=== PATIENT | female | born 1945 | race Caucasian/White ===

== ENCOUNTER 2019-07-28 08:49 | Outpatient (CLI) | payer MEDICARE, SELFPAY ==
--- NOTE | ~2019-07-28 | XR_ITS ---
XR thoracic spine 3V 07/28/2019 09:09 Indication: Back pain Procedure: 3 views of the thoracic spine Comparison: No prior studies for comparison. Findings: Vertebral body heights are maintained. There is levoscoliosis centered at the thoracolumbar junction. There is moderate-severe multilevel thoracic and upper lumbar spondylosis. No paraspinal s oft tissue abnormality. Surrounding osseous structures within normal limits. There is right basilar a telectasis/scarring. There are cholecystectomy clips. Impression: 1: Moderate-severe thoracolumbar spondylosis. Reviewed, dictated and finalized at location A. Impression: 1: Moderate-severe thoracolumbar spondylosis.
--- NOTE | ~2019-07-28 | XR_ITS ---
XR lumbar spine 2-3V 07/28/2019 09:09 Indication: Low back pain Procedure: 3 views lumbar spine Comparison: 02/22/2015 Findings: There is loss of disc height at all lumbar levels. There is also disc height loss at T11-T1 2 and T12-L1. There are prominent ventral osteophytes at multiple levels including T11-12, T12-L1 and L1-2. There is grade 1 degenerative spondylolisthesis at L5-S1. There is moderate lower lumbar facet hypertrophy. There is levoscoliosis centered at the thoracolumbar junction. There are cholecystectom y clips. Impression: 1: Progression of severe thoracolumbar spondylosis. Reviewed, dictated and finalized at location A. Impression: 1: Progression of severe thoracolumbar spondylosis.
== END 2019-07-28 08:50 | disposition home or self-care (01) ==
LOC: ANHIMG 08:57
PROVIDERS: PCP Family Medicine Adolescent Medicine; Visit Provider Family Medicine Adolescent Medicine
DX: M54.5 Low back pain (principal); M47.815 Spondylosis without myelopathy or radiculopathy, thoracolumbar region
CPT/HCPCS: 72072; 72100

== ENCOUNTER 2019-10-30 07:02 | Outpatient (NON) | payer MEDICARE, SELFPAY ==
[2019-10-30 18:21] LABS: SARS-CoV-2 RNA PCR Negative
== END 2019-10-30 07:03 ==
PROVIDERS: PCP Family Medicine Adolescent Medicine; Visit Provider Family Medicine Adolescent Medicine
DX: Z20.828 Contact with and (suspected) exposure to other viral communicable diseases (principal); R50.9 Fever, unspecified
CPT/HCPCS: 87635; C9803; U0003

== ENCOUNTER 2019-10-31 00:35 | Emergency (ER) | payer MEDICARE, SELFPAY ==
[2019-10-31] VITALS (7 sets, daily range): BP systolic 99–111; BP diastolic 61–78; PULSE 69–96; RESP 14–24; TEMP 37.6–39.4; O2SAT 94–99
--- NOTE | ~2019-10-31 | XR_ITS ---
EXAMINATION: XR chest 1V portable INDICATION: Fever TECHNIQUE: Portable AP chest at 0126 hours COMPARISON: 03/17/2018 FINDINGS: The lungs are free of acute opacities. There is no pleural effusion or pneumothorax. The ca rdiomediastinal silhouette is normal. A healed shaft fracture of the left humerus is noted. IMPRESSION: 1. No acute cardiopulmonary abnormality. Reviewed, dictated and finalized at location A.
[2019-10-31 01:31] LABS: Basophils Percent Auto 0.5 % (0.2-1.2); Eosinophils Absolute Auto 0.3 K/mm3 (0-0.3); Eosinophils Percent Auto 5.9 % (0-4.4); Hematocrit 37.9 % (37.0-47.0); Hemoglobin 12.7 g/dL (12.0-15.0); Immature Granulocyte Absolute 0.03 K/mm3 (0.00-0.031); Immature Granulocyte Percent A 0.5 % (0-0.5); Lymphocytes Absolute Auto 0.88 K/mm3 (0.9-3.2); Lymphocytes Percent Auto 15.8 % (18.3-44.2); Mean Corpuscular HGB Conc 33.5 g/dl (32-36); Mean Corpuscular Hemoglobin 30.2 pg (26-34); Mean Platelet Volume 9.4 fl (7.4-10.4); Monocytes Absolute Auto 0.4 K/mm3 (0.1-0.6); Monocytes Percent Auto 6.8 % (2.6-8.5); Neutrophils Absolute Auto 3.9 K/mm3 (1.3-6.7); Neutrophils Percent Auto 70.5 % (45.5-73.1); Platelet Count Result 280 k/mm3 (150-375); Red Blood Count 4.21 M/mm3 (4.2-5.4); Red Cell Distribution Width 14.3 % (11.5-14.5); White Blood Count 5.6 K/mm3 (4.5-10.0)
[2019-10-31 01:37] LABS: INR 1.1; Prothrombin Time 13.4 Seconds (11.1-14.7)
[2019-10-31 01:38] LABS: Partial Thromboplastin Time 33.7 SECONDS (22.3-36.8)
[2019-10-31 01:41] LABS: Lactic Acid Reflex 0.6 mmol/L (0.7-2.1)
[2019-10-31 02:00] LABS: Add Urine Microscopic? YES; Appearance Urine Clear (Clear); Bilirubin Urine Negative (Negative); Blood Urine 2+ (Negative); Color Urine Yellow (Yellow); Glucose Urine UA Negative (Negative); Ketones Urine Negative (Negative); Leukocyte Esterase Ur Trace LEU/UL (Negative); Mucus Urine Rare /lpf; Nitrate Urine Negative (Negative); Protein Urine 1+ mg/dL (Negative); RBC Urine 21-50 /hpf (0-2); Specific Grav Ur 1.018 (1.001-1.035); Squamous Epithelial Cell Urine Many /hpf (Few); Urobilinogen Urine Negative mg/dL (<2.0)
[2019-10-31 02:10] LABS: Alanine Aminotransferase 120 U/L (4-35); Albumin Level 3.7 g/dL (3.5-5.1); Alkaline Phosphatase 200 U/L (38-126); Anion Gap 8 mmol/L (8-16); Aspartate Amino Transferase 227 U/L (14-36); Bilirubin,Total 0.5 mg/dL (0.2-1.3); Blood Urea Nitrogen 7 mg/dL (7-17); Calcium 8.1 mg/dL (8.4-10.2); Carbon Dioxide 21 mmol/L (22-30); Chloride 102 mmol/L (98-107); Estimated Glomerular Filt Rate > 60; Glucose 132 mg/dL (65-105); Potassium 3.5 mmol/L (3.4-5.0); Sodium 131 mmol/L (137-145)
[2019-10-31] MEDS: KETOROLAC 15 MG/ML VIAL (*BKC) IV PUSH (02:34)
[2019-10-31] MEDS: LACTATED RINGERS 1,000 ML 999 ML IV CONT (02:34)
--- NOTE | 2019-10-31 02:44 | ED.FEVER ---
HPI - Fever General Chief Complaint: Fever Stated Complaint: fever, n/v Time Seen by Provider: 10/31/19 01:39 Source: patient Mode of arrival: ambulatory Limitations: no limitations History of Present Illness HPI Narrative: This patient is a 74 year old female who presents for evaluation of fever. Patient reports she got her flu vaccination on Saturday. Following her vaccine, she reports she had not felt well. She reports she has felt like she has the flu. She is complaining of fatigue , headache, neck soreness with nausea. She also reports fever at home. MD elicited complaint: fever Related Data Home Medications Medication Instructions Recorded Confirmed aczvqmekuv-ojsgorm-oyjrslmu 50 1 cap PO Q6H PRN 10/26/19 mg-325 mg-40 mg capsule calcium carbonate 600 mg calcium 600 mg PO DAILY 10/26/19 (1,500 mg) tablet dexlansoprazole 60 mg 60 mg PO DAILY 10/26/19 capsule,biphase delayed release fexofenadine 60 mg tablet 60 mg PO Q12H 10/26/19 fluticasone 100 mcg-salmeterol 50 1 inhalation INHALATION Q12H 10/26/19 mcg/dose blistr powdr for inhalation gemfibrozil 600 mg tablet 600 mg PO BID 10/26/19 levothyroxine 100 mcg tablet 100 mcg PO DAILY 10/26/19 ek-nlq-H-fwxlqttr-bwswxz-ap934 mg PO 10/26/19 1,000 cs-uixtldpxc-zppsfo-herb 124 50 mg efferves tablet phenylephrine HCl 10 mg tablet 10 mg PO Q4-6H PRN 10/26/19 propranolol 60 mg capsule,24 60 mg PO DAILY 10/26/19 hr,extended release Allergies Allergy/AdvReac Type Severity Reaction Status Date / Time bacitracin Allergy Mild unknown Verified 10/31/19 00:52 esomeprazole Allergy Mild Unknown Verified 10/31/19 00:52 gramicidin D Allergy Mild Unknown Verified 10/31/19 00:52 neomycin Allergy Mild Unknown Verified 10/31/19 00:52 polymyxin B Allergy Mild Unknown Verified 10/31/19 00:52 Sulfa (Sulfonamide Allergy Mild Unknown Verified 10/31/19 00:52 Antibiotics) cefuroxime Allergy Unknown Unknown Verified 10/31/19 00:52 latex Allergy Unknown unknown Verified 10/31/19 00:52 moxifloxacin Allergy Unknown Unknown Verified 10/31/19 00:52 streptomycin Allergy Unknown Unknown Verified 10/31/19 00:52 ESOMEPRAZOLE MAG Allergy Unknown Unknown Uncoded 10/31/19 00:52 Review of Systems Review of Systems: All systems reviewed & are unremarkable except as noted in HPI and below Constitutional: Constitutional: Reports fever(s) ENT: Denies sore throat Cardiovascular: Cardiovascular: Denies chest pain Respiratory: Respiratory: Denies cough and Denies dyspnea Gastrointestinal: Gastrointestinal: Denies abdominal pain, Reports nausea and Denies vomiting Musculoskeletal: Musculoskeletal: Reports myalgias Neurologic: Reports headache(s) PMFSH Past Medical History Medical History (Updated 10/31/19 @ 04:20 by Kim Covington MD) Asthma Depression Diabetes IBS (irritable bowel syndrome) Irregular heart beat Lumbar radiculopathy, right Osteoporosis Social History Social History Smoking status: Never smoker Exam Narrative: Exam Narrative: GENERAL: Well-appearing, well-nourished, and in no acute distress. HEAD: Normocephalic, atraumatic EYES: PERRLA and EOMI, conjunctiva clear without discharge EARS: TM's clear bilaterally without erythema or dullness THROAT:Mucous membranes moist, Oropharynx normal without erythema, exudate, peritonsillar swelling or fluctuance NECK: Supple, without lymphadenopathy or mass RESPIRATORY: No respiratory distress, Airway patent, Respirations non-labored, Clear to auscultation without rales, rhonchi or wheeze HEART: Regular rate and rhythm. No murmur heard. Normal peripheral pulses. ABDOMEN: Soft, nontender, nondistended, normal active bowel sounds. No masses. No rebound or guarding, No organomegaly. EXTREMITIES: No edema, normal strength with full range of motion. SKIN: Warm, dry, normal color without rash NEURO: Alert and oriented x3. CN
[2019-10-31] MEDS: ONDANSETRON INJ 4 MG/2 ML VIAL IV PUSH (03:06)
[2019-10-31 03:13] LABS: Creatine Kinase 58 U/L (30-135)
[2019-10-31 10:13] LABS: Hepatitis B Surface Antigen Negative (Negative)
[2019-10-31 10:20] LABS: HAV RESULT Negative (Negative); Hepatitis B Core IgM Result Negative (Negative)
[2019-10-31 10:33] LABS: Hepatitis C Virus Antibody Negative (Negative)
== END 2019-10-31 04:45 | disposition home or self-care (01) ==
PROVIDERS: Emergency Provider General Practice; PCP Family Medicine Adolescent Medicine
DX: B34.9 Viral infection, unspecified (principal); R50.9 Fever, unspecified; R94.5 Abnormal results of liver function studies; J45.909 Unspecified asthma, uncomplicated; E11.9 Type 2 diabetes mellitus without complications; K58.9 Irritable bowel syndrome, unspecified; M81.0 Age-related osteoporosis without current pathological fracture
CPT/HCPCS: 36415; 71045; 80053; 80074; 81001; 82550; 83605; 85025; 85610; 85730; 86140; 87040; 96361; 96374; 96375; 99284; J1885; J2405; J7120

== ENCOUNTER 2019-12-05 12:19 | Emergency (ER) | payer MEDICARE, SELFPAY ==
[2019-12-05 12:28] VITALS: BP 114/73; PULSE 79; RESP 16; TEMP 36.8; O2SAT 98
--- NOTE | 2019-12-05 12:43 | ED.WOUNDLAC ---
HPI - Wound/Laceration General Chief Complaint: Wound/Laceration Stated Complaint: laceration left lower leg Time Seen by Provider: 12/05/19 12:43 Source: patient Mode of arrival: ambulatory Limitations: no limitations History of Present Illness HPI narrative: Karen Victoria is a 74 yo female with a PMH of hypothyroid, irregular heartbeat, high cholesterol, migraine, GERD, who comes to express care with skin tear of left proximal tibia area that occurred 8 days ago. Patient has been keeping it clean and dry and applying mupirocin ointment to the area. Continues to be somewhat puffy not red and warm but patient is concerned about infection because it has not healed yet, she has multiple other areas of small skin tears Related Data Home Medications Medication Instructions Recorded Confirmed ccmqcyonjq-miuewmb-sesqcvbq 50 1 cap PO Q6H PRN 10/26/19 12/05/19 mg-325 mg-40 mg capsule calcium carbonate 600 mg calcium 600 mg PO DAILY 10/26/19 12/05/19 (1,500 mg) tablet dexlansoprazole 60 mg 60 mg PO DAILY 10/26/19 12/05/19 capsule,biphase delayed release fexofenadine 60 mg tablet 60 mg PO Q12H 10/26/19 12/05/19 fluticasone 100 mcg-salmeterol 50 1 inhalation INHALATION Q12H 10/26/19 12/05/19 mcg/dose blistr powdr for inhalation gemfibrozil 600 mg tablet 600 mg PO BID 10/26/19 12/05/19 levothyroxine 100 mcg tablet 100 mcg PO DAILY 10/26/19 12/05/19 mv-min-vit C 1,000 mg PO 10/26/19 zf-cmsbfvyek-xktbdc-herb 124 50 mg efferves tablet phenylephrine HCl 10 mg tablet 10 mg PO Q4-6H PRN 10/26/19 12/05/19 propranolol 60 mg capsule,24 60 mg PO DAILY 10/26/19 12/05/19 hr,extended release oxycodone-acetaminophen [Percocet] 1 tablet PO Q6H PRN 12/05/19 12/05/19 venlafaxine 150 mg PO DAILY 12/05/19 12/05/19 Allergies Allergy/AdvReac Type Severity Reaction Status Date / Time bacitracin Allergy Mild unknown Verified 12/05/19 12:33 esomeprazole Allergy Mild Unknown Verified 12/05/19 12:33 gramicidin D Allergy Mild Unknown Verified 12/05/19 12:33 neomycin Allergy Mild Unknown Verified 12/05/19 12:33 polymyxin B Allergy Mild Unknown Verified 12/05/19 12:33 Sulfa (Sulfonamide Allergy Mild Unknown Verified 12/05/19 12:33 Antibiotics) cefuroxime Allergy Unknown Unknown Verified 12/05/19 12:33 latex Allergy Unknown unknown Verified 12/05/19 12:33 moxifloxacin Allergy Unknown Unknown Verified 12/05/19 12:33 streptomycin Allergy Unknown Unknown Verified 12/05/19 12:33 ketorolac [From Toradol] Allergy Hives Verified 12/05/19 12:33 ESOMEPRAZOLE MAG Allergy Unknown Unknown Uncoded 10/31/19 00:52 Review of Systems Review of Systems: Narrative: CONSTITUTIONAL: Denies fever, chills, sweats. EYES: Denies visual changes, redness, discharge. ENT: Denies rhinorrhea, congestion, sore throat, otalgia. CARDIOVASCULAR: Denies chest pain, palpitations, edema. RESPIRATORY: Denies dyspnea, wheezing, cough GASTROINTESTINAL: Denies abdominal pain, nausea, vomiting, diarrhea. GENITOURINARY: Denies dysuria, hematuria, abnormal discharge SKIN: Denies rash or itching. Skin tear to left anterior tibia area NEUROLOGIC: Denies numbness, or focal weakness. PSYCHIATRIC: Denies anxiety or depression. PMFSH Past Medical History Medical History Asthma Depression Diabetes IBS (irritable bowel syndrome) Irregular heart beat Lumbar radiculopathy, right Osteoporosis Family History Family History Other Asthma Diabetes mellitus Family history of arthritis Family history of chronic obstructive pulmonary disease Family history of congenital heart disease Family history of osteoarthritis Social History Social History (Updated 12/05/19 @ 12:53 by Morelia Keyes CNP) Smoking status: Never smoker Alcohol intake: never Exam Narrative: Exam Narrative: GENERAL: This is a well-nourished, well-developed patient, in mild distre
== END 2019-12-05 13:04 | disposition home or self-care (01) ==
PROVIDERS: Emergency Provider Nurse Practitioner; PCP Family Medicine Adolescent Medicine
DX: S81.812A Laceration without foreign body, left lower leg, initial encounter (principal); X58.XXXA Exposure to other specified factors, initial encounter; E03.9 Hypothyroidism, unspecified; E78.00 Pure hypercholesterolemia, unspecified; K21.9 Gastro-esophageal reflux disease without esophagitis; J45.909 Unspecified asthma, uncomplicated; E11.9 Type 2 diabetes mellitus without complications; M81.0 Age-related osteoporosis without current pathological fracture; F32.9 Major depressive disorder, single episode, unspecified
CPT/HCPCS: 99213; G0463

== ENCOUNTER → 2020-08-31 15:53 | Outpatient (CLI) | payer MEDICARE, SELFPAY ==
--- NOTE | ~2020-08-31 | MM_ITS ---
EXAMINATION: MM screening [facility] BI w keyshawn HISTORY: Screening mammogram TECHNIQUE: Craniocaudal and mediolateral oblique 3-D tomosynthesis images were obtained and synthetic 2-D images were generated. CAD analysis was submitted and interpreted. COMPARISON: 06/25/2018, 04/25/2017, 03/01/2016 BREAST PARENCHYMAL COMPOSITION: There are scattered areas of fibroglandular density. FINDINGS: There is no evidence of suspicious mass, calcification, or architectural distortion to sugg est malignancy in either breast. There has been no suspicious interval change. IMPRESSION: 1. No mammographic evidence of malignancy. 2. Recommend routine screening mammography in one year. BI-RADS Category 1: Negative Reviewed, dictated and finalized at location A.
== END ==
PROVIDERS: Visit Provider Obstetrics & Gynecology
DX: Z12.31 Encounter for screening mammogram for malignant neoplasm of breast (principal)
CPT/HCPCS: 77063; 77067

== ENCOUNTER → 2020-10-25 11:03 | Outpatient (CLI) | payer MEDICARE, SELFPAY ==
--- NOTE | ~2020-10-25 | XR_ITS ---
EXAMINATION: XR hip LT min 2V INDICATION: Left hip pain TECHNIQUE: Two views of the left hip are obtained. COMPARISON: None available FINDINGS: Bone alignment is normal. There is no fracture. The soft tissues are unremarkable. Phleboli ths are noted in the pelvis. There is severe spondylosis at L5-S1. IMPRESSION: 1. No acute osseous abnormality. 2. Severe lumbar spondylosis. Reviewed, dictated and finalized at location A.
== END ==
PROVIDERS: PCP Family Medicine Adolescent Medicine; Visit Provider Family Medicine Adolescent Medicine
DX: M25.552 Pain in left hip (principal); M47.816 Spondylosis without myelopathy or radiculopathy, lumbar region
CPT/HCPCS: 73502

== ENCOUNTER 2020-11-02 07:14 | Outpatient (CLI) | payer MEDICARE, SELFPAY ==
--- NOTE | ~2020-11-02 | XR_ITS ---
EXAMINATION: XR barium swallow modified DATE: 11/02/2020 08:18 INDICATION: Dysphagia. TECHNIQUE: The patient was given barium-containing material of multiple consistencies to swallow by t he speech pathologist while I performed fluoroscopy. Fluoroscopy exposure time was 0.9 minutes. The n umber of fluoroscopy images saved to the PACS was 1. Dose-area product was 0.7 Gy-cm^2. FINDINGS: There was trace laryngeal penetration with thin liquids. No aspiration. IMPRESSION: 1. Trace laryngeal penetration with thin liquids. No aspiration. 2. Please refer to the speech therapy report for recommendations. Reviewed, dictated and finalized at location A.
--- NOTE | 2020-11-02 11:01 | STOPEVAL ---
MODIFIED BARIUM SWALLOW EVALUATION Thank you for referring Karen Victoria to [facility].? Admitting Provider: Attending Provider: Alfonzo Gauthier MD Referring Provider: JOON Outpatient Evaluation Start: 11/02/20 10:29 Freq: Status: Active Protocol: Document 11/02/20 08:15 BAS (Rec: 11/02/20 10:42 BAS [email or web address]) Therapy Assessment Status Assessment Status Assessment Status Evaluation Outpatient Past Medical History Past Medical History No Past Medical/Surgical History Patient/Family Denies Significant Past Medical/ Surgical History Evaluation Information Problem Diagnosis Dysphagia Onset 02/25/2019 Cause Unknown Subjective Information Patient reports that she has Query Text:As Reported By Patient/ episodes of pills getting Family stuck in her throat and she must wash them down with extra sips of water. Patient stated that she feels that her airway is restricted. She states when she is eating, she eats slowly and carefully, chewing a long time for ease of swallowing. She reports that her swallowing is sometimes better, sometimes worse. Patient reports that she also suffers from GERD. Diagnostic Tests X-Rays For This Problem No MRI For This Problem No Pain Assessment Timing of Pain Assessment Timing of Pain Assessment Assessment Self Report Self Report Pain Level 0 Pain Score Pain Score 0: Self Report Modified Barium Swallow Evaluation Recent Swallowing History Reports Dysphagia Yes Onset of Dysphagia Last year. History of Dysphagia No Other Factors Impacting Dysphagia None History of Pneumonia No Reported Difficult Consistencies Pills,Solids Intake Method Prior to Swallow Oral Evaluation Diet Prior to Swallow Evaluation Regular, Level 7 Liquid Consistency Prior to Swallow Thin (0) Evaluation Consistency Solid Consistency 5 mL Method of Presentation Spoon Oral Preparatory Symptoms Within Functional Limits Oral Phase Symptoms Within Functional Limits Pharyngeal Phase Symptoms Within Functional Limits Severity of Vallecular Residue None - 0% No Residue Severity of Pyriform Sinus Residue None - 0% No Residue 8 Point Laryngeal Penetration-Aspiration Material Does Not Enter Airway Scale Cervical/Esophageal Symptoms
== END 2020-11-02 07:15 | disposition home or self-care (01) ==
PROVIDERS: PCP Family Medicine Adolescent Medicine; Visit Provider Family Medicine Adolescent Medicine
DX: R13.10 Dysphagia, unspecified (principal)
CPT/HCPCS: 92611

== ENCOUNTER → 2021-01-27 02:01 | Outpatient (CLI) | payer MEDICARE, SELFPAY ==
[2021-01-27 17:54] LABS: SARS-CoV-2 RNA PCR Negative
== END ==
PROVIDERS: PCP Family Medicine Adolescent Medicine; Visit Provider Family Medicine Adolescent Medicine
DX: Z20.822 Contact with and (suspected) exposure to COVID-19 (principal)
CPT/HCPCS: C9803; U0003; U0005

== ENCOUNTER → 2021-12-26 12:05 | Outpatient (CLI) | payer MEDICARE, SELFPAY ==
--- NOTE | ~2021-12-26 | MM_ITS ---
EXAMINATION: MM screening [facility] BI w keyshawn HISTORY: Screening TECHNIQUE: Craniocaudal and mediolateral oblique 3-D tomosynthesis images were obtained and synthetic 2-D images were generated. CAD analysis was submitted and interpreted. COMPARISON: No prior mammogram is available for comparison at this institution. BREAST PARENCHYMAL COMPOSITION: There are scattered areas of fibroglandular density. FINDINGS: There are focal clustered calcifications adjacent to the nipple on the right cc view which are not demonstrated on MLO view. These are possibly skin calcifications. The left breast is stable w ithout evidence for malignancy. IMPRESSION: 1. New right breast calcifications, possibly benign skin calcifications. 2. Additional mammographic views are recommended. BI-RADS Category 0: Incomplete: Needs additional imaging evaluation. Reviewed, dictated and finalized at location A.
== END ==
PROVIDERS: PCP Family Medicine Adolescent Medicine; Visit Provider Obstetrics & Gynecology
DX: Z12.31 Encounter for screening mammogram for malignant neoplasm of breast (principal); R92.8 Other abnormal and inconclusive findings on diagnostic imaging of breast
CPT/HCPCS: 77063; 77067

== ENCOUNTER → 2022-01-04 13:31 | Outpatient (CLI) | payer MEDICARE, SELFPAY ==
--- NOTE | ~2022-01-04 | DEXA_ITS ---
Bone Density Report Name: AKIRA DAVALOS Age: 76 Sex: Female Ethnicity: White Date of : 1945 Indication: osteopenia; monitoring treatment; height loss; prior fracture; asthma or emphysema; hysterectomy; postmenopausal Referring Provider: ADA COLBY Study: Bone densitometry was performed. Exam Date: January 04, 2022 Accession number: [id number] Bone Density: Region BMD T-score Z-score Classification AP Spine (L2, L3, L4) 0.980 -0.9 1.8 Normal Femoral Neck (Left) 0.653 -1.8 0.5 Osteopenia Total Hip (Left) 0.809 -1.1 0.9 Osteopenia Femoral Neck (Right) 0.698 -1.4 0.9 Osteopenia Total Hip (Right) 0.882 -0.5 1.5 Normal Total Hip Mean 0.846 -0.8 1.2 Normal World Health Organization criteria for BMD impression classify patients as: Normal (T-score at or above -1.0), Osteopenia (T-score between -1.0 and -2.5), or Osteoporosis (T-score at or below -2.5). 10-year Fracture Risk: FRAX not reported because: Treated for osteoporosis Previous Exams: Region Exam Age BMD T-score BMD Change BMD Change Date g/cm2 vs Baseline vs Previous AP Spine(L2, L3, L4) 01/04/2022 76 0.980 -0.9 0.046* 0.052* 08/25/2010 65 0.928 -1.4 -0.007 -0.007 01/23/2008 62 0.935 -1.3 Total Hip(Left) 01/04/2022 76 0.809 -1.1 -0.146* -0.076* 09/21/2016 71 0.886 -0.5 -0.070* 0.017 06/18/2014 69 0.869 -0.6 -0.087* 0.021 08/25/2010 65 0.848 -0.8 -0.107* -0.107* 01/23/2008 62 0.955 0.1 Total Hip(Right) 01/04/2022 76 0.882 -0.5 -0.088* -0.019 09/21/2016 71 0.901 -0.3 -0.069* 0.030* 06/18/2014 69 0.871 -0.6 -0.099* 0.030* 08/25/2010 65 0.841 -0.8 -0.129* -0.129* 01/23/2008 62 0.970 0.2 *Denotes significance at 95% confidence level, LSC for AP Spine = 0.022 g/cm2, LSC for Total Hip = 0.027 g/cm2 Clinical Information Provided by Patient: Has had a low trauma fracture Is being treated for osteoporosis Has used the following medications: Prolia (i.e. denosumab), Vitamin D, Calcium Has the following medical conditions: Asthma or Emphysema, Hysterectomy Patient maximum height was 60 Menopause Age: 46 No regular weight bearing exercise Drinks caffeinated beverages Onset of menses at age 8 Number of children 2 Missed period for more than 6 months in a row
== END ==
PROVIDERS: PCP Family Medicine Adolescent Medicine; Visit Provider Family Medicine Adolescent Medicine
DX: M81.0 Age-related osteoporosis without current pathological fracture (principal); Z78.0 Asymptomatic menopausal state; M85.852 Other specified disorders of bone density and structure, left thigh; M85.851 Other specified disorders of bone density and structure, right thigh
CPT/HCPCS: 77080

== ENCOUNTER 2022-01-10 08:43 | Outpatient (CLI) | payer MEDICARE, SELFPAY ==
--- NOTE | ~2022-01-10 | MMUS_ITS ---
EXAMINATION: MM diagnostic mammo unilat RT, US breast RT limited HISTORY: Follow-up right breast calcifications TECHNIQUE: Additional 3-D tomosynthesis images of the right breast were performed and synthetic 2-D i mages were generated. CAD analysis was submitted and interpreted. High resolution Limited right breas t ultrasound was performed. COMPARISON: Comparison to multiple prior studies sequentially, with oldest reviewed study dated 04/2014. BREAST PARENCHYMAL COMPOSITION: Breast composed of scattered areas of fibroglandular density FINDINGS: MAMMOGRAPHIC FINDINGS: Breast composed of scattered areas of fibroglandular density. There are right breast calcifications w hich have a benign configuration. No suspicious cluster of calcifications are identified. No suspicio us masses or architectural distortion. ULTRASOUND: Limited right breast ultrasound: Normal heterogeneous echotexture without focal solid or cystic mass. IMPRESSION: 1. No evidence for malignancy in the right breast. 2. Routine yearly screening mammogram and regular clinical breast examination are recommended. BI-RADS Category 2: Benign finding(s). Reviewed, dictated and finalized at location A. 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 No evidence for malignancy in the right breast. 2. Routine yearly screening mammogram and regular clinical breast examination a re recommended. BI-RADS Category 2: Benign finding(s).
== END 2022-01-10 08:44 ==
PROVIDERS: PCP Family Medicine Adolescent Medicine; Visit Provider Obstetrics & Gynecology
DX: R92.1 Mammographic calcification found on diagnostic imaging of breast (principal)
CPT/HCPCS: 76642; 77065

== ENCOUNTER 2022-05-19 08:29 | Emergency (ER) | payer MEDICARE, SELFPAY ==
--- NOTE | 2022-05-19 08:34 | ED.SKABFB ---
HPI - Skin/Abscess/Foreign Bdy General Stated complaint: cut left hand Time Seen by Provider: 05/19/22 08:46 Source: patient and RN notes reviewed Mode of arrival: ambulatory Limitations: no limitations History of Present Illness HPI narrative: 77-year-old female presents concern for dog bite to the dorsal aspect of her left hand. Reports on her daughter's dog bit her. Reports it is bruised, tender with a skin tear that keeps opening. She reports she has been putting mupirocin ointment on it. She reports slight redness and tenderness. She reports she was started on Augmentin for a different wound, she is on day 3 of Augmentin. She denies purulent drainage from the wound. MD complaint: other (Dog bite) Related Data Home Medications Medication Instructions Recorded Confirmed calcium carbonate 600 mg calcium 600 mg PO DAILY 10/26/19 04/20/22 (1,500 mg) tablet (Calcium) ergocalciferol (vitamin D2) 400 600 unit PO BID 05/22/21 04/20/22 unit capsule zinc 50 mg tablet 50 mg PO DAILY 05/22/21 04/20/22 meclizine 25 mg tablet 25 mg PO TID 11/23/21 04/20/22 Allergies Allergy/AdvReac Type Severity Reaction Status Date / Time bacitracin Allergy Mild unknown Verified 05/19/22 08:37 esomeprazole Allergy Mild Unknown Verified 05/19/22 08:37 gramicidin D Allergy Mild Unknown Verified 05/19/22 08:37 neomycin Allergy Mild Unknown Verified 05/19/22 08:37 polymyxin B Allergy Mild Unknown Verified 05/19/22 08:37 Sulfa (Sulfonamide Allergy Mild Unknown Verified 05/19/22 08:37 Antibiotics) cefuroxime Allergy Unknown Unknown Verified 05/19/22 08:37 latex Allergy Unknown unknown Verified 05/19/22 08:37 moxifloxacin Allergy Unknown Unknown Verified 05/19/22 08:37 streptomycin Allergy Unknown Unknown Verified 05/19/22 08:37 ketorolac [From Toradol] Allergy Hives Verified 05/19/22 08:37 Review of Systems Review of Systems: CONSTITUTIONAL: Denies malaise, chills, sweats, or fever. SKIN: Reports wound on the dorsal aspect of left hand, reports tenderness, redness, continued oozing MUSCULOSKELETAL: Denies musculoskeletal pain, decreased sensation, strength, range of motion hand All systems reviewed & are unremarkable except as noted in HPI and below PMFSH Past Medical History Medical History Asthma Depression Diabetes IBS (irritable bowel syndrome) Irregular heart beat Lumbar radiculopathy, right Osteoporosis Surgical History Surgical History H/O hysterectomy with oophorectomy History of cholecystectomy 2003 History of shoulder surgery 2014, right, rotator cuff Family History Family History Other Asthma Diabetes mellitus Family history of arthritis Family history of chronic obstructive pulmonary disease Family history of congenital heart disease Family history of osteoarthritis Social History Social History Smoking status: Never smoker Second hand tobacco smoke exposure: No Alcohol intake: current Alcohol use details: rarely Substance use: never Substance use type: does not use Living arrangements: with family Occupation/Education: retired Gender identity (if verbalized by the patient): Female Sexual Orientation (if Verbalized by the Patient): Straight or Heterosexual Spiritual care concerns: No Agree to blood products: Yes Comments At time of signature, agree with nursing past medical, surgical, social and family history. There is no relevant family history pertinent to the presenting complaint Exam Narrative: GENERAL: Well-appearing, well-nourished, and in no acute distress. HEAD: Normocephalic, atraumatic. EYES: PERRLA, conjunctivae clear ENT: Mucous membranes moist. NECK: Supple. No lymphadenopathy CHEST: Clear to auscultation. No respiratory di
[2022-05-19 08:41] VITALS: BP 123/71; PULSE 69; RESP 16; TEMP 37.1; O2SAT 99
== END 2022-05-19 09:19 | disposition home or self-care (01) ==
PROVIDERS: Emergency Provider Nurse Practitioner; PCP Family Medicine Adolescent Medicine
DX: S61.412A Laceration without foreign body of left hand, initial encounter (principal); W54.0XXA Bitten by dog, initial encounter; E11.9 Type 2 diabetes mellitus without complications; M81.0 Age-related osteoporosis without current pathological fracture; J45.909 Unspecified asthma, uncomplicated
CPT/HCPCS: 99212; G0463

== ENCOUNTER 2022-06-02 08:26 | Emergency (ER) | payer MEDICARE, SELFPAY ==
--- NOTE | 2022-06-02 08:35 | ED.GENADULT ---
HPI - General Adult General Chief complaint: Extremity Injury, Upper Stated complaint: left hand pain Time Seen by Provider: 06/02/22 08:35 Source: patient, RN notes reviewed and old records reviewed Mode of arrival: ambulatory Limitations: no limitations History of Present Illness HPI narrative: 77-year-old female presents to the [facility] with bruising and swelling to the left hand. Was seen on May 19, 2 weeks ago for skin tear. Finished Augmentin for a dog scratch to the same hand. Dog scratch/skin tear are healed. Patient states that her son was walking past her yesterday and bumped her hand and the bruising occurred right away. Bruising to the entire dorsal aspect of hand. No tenderness. Onset (ago): day(s) (1) Related Data Home Medications Medication Instructions Recorded Confirmed calcium carbonate 600 mg calcium 600 mg PO DAILY 10/26/19 05/30/22 (1,500 mg) tablet (Calcium) ergocalciferol (vitamin D2) 400 600 unit PO BID 05/22/21 05/30/22 unit capsule zinc 50 mg tablet 50 mg PO DAILY 05/22/21 05/30/22 Allergies Allergy/AdvReac Type Severity Reaction Status Date / Time bacitracin Allergy Mild unknown Verified 06/02/22 08:36 esomeprazole Allergy Mild Unknown Verified 06/02/22 08:36 gramicidin D Allergy Mild Unknown Verified 06/02/22 08:36 neomycin Allergy Mild Unknown Verified 06/02/22 08:36 polymyxin B Allergy Mild Unknown Verified 06/02/22 08:36 Sulfa (Sulfonamide Allergy Mild Unknown Verified 06/02/22 08:36 Antibiotics) cefuroxime Allergy Unknown Unknown Verified 06/02/22 08:36 latex Allergy Unknown unknown Verified 06/02/22 08:36 moxifloxacin Allergy Unknown Unknown Verified 06/02/22 08:36 streptomycin Allergy Unknown Unknown Verified 06/02/22 08:36 ketorolac [From Toradol] Allergy Hives Verified 06/02/22 08:36 Review of Systems Review of Systems: All systems reviewed & are unremarkable except as noted in HPI and below Constitutional: Constitutional: Reports no additional constitutional complaints Eyes: Eyes: Reports no additional eye complaints ENT: Reports system reviewed and no additional complaints, except as documented Cardiovascular: Cardiovascular: Reports no additional cardiovascular complaints, Denies chest pain and Denies dyspnea Respiratory: Respiratory: Reports no additional respiratory complaints, Denies chest congestion, Denies cough and Denies dyspnea Gastrointestinal: Gastrointestinal: Reports no additional gastrointestinal complaints, Denies abdominal pain, Denies nausea and Denies vomiting Musculoskeletal: Musculoskeletal: Reports no additional musculoskeletal complaints Integumentary/Breasts: Skin/Breast: Reports as per HPI Neurologic: Reports system reviewed and no additional complaints, except as documented Psychiatric: Psychiatric: Reports no additional psychiatric complaints Allergic/Immunologic: Allergic/Immunologic: Reports no additional allergic/immunologic complaints [facility] Past Medical History Medical History Asthma Depression Diabetes IBS (irritable bowel syndrome) Irregular heart beat Lumbar radiculopathy, right Osteoporosis Surgical History Surgical History H/O hysterectomy with oophorectomy History of cholecystectomy 2003 History of shoulder surgery 2014, right, rotator cuff Family History Family History Other Asthma Diabetes mellitus Family history of arthritis Family history of chronic obstructive pulmonary disease Family history of congenital heart disease Family history of osteoarthritis Social History Social History Smoking status: Never smoker Second hand tobacco smoke exposure: No Alcohol intake: current Alcohol use details: rarely Substance use: never Substance use type: does not use Li
[2022-06-02 08:38] VITALS: BP 128/70; PULSE 74; RESP 16; TEMP 37.3; O2SAT 99
== END 2022-06-02 08:50 | disposition home or self-care (01) ==
PROVIDERS: Emergency Provider Nurse Practitioner; PCP Family Medicine Adolescent Medicine
DX: S60.222A Contusion of left hand, initial encounter (principal); X58.XXXA Exposure to other specified factors, initial encounter; J45.909 Unspecified asthma, uncomplicated; E11.9 Type 2 diabetes mellitus without complications; M81.0 Age-related osteoporosis without current pathological fracture
CPT/HCPCS: 99212; G0463

== ENCOUNTER 2022-06-15 01:40 | Emergency (ER) | payer MEDICARE, SELFPAY ==
--- NOTE | ~2022-06-15 | XR_ITS ---
XR chest 1V portable 06/15/2022 03:14 Indication: Vomiting, weakness and diarrhea Procedure: AP portable chest Comparison: Comparison to multiple prior studies sequentially, with oldest reviewed study dated 07/04. Findings: Heart size is normal. There are irregular nodular densities of the right lower thorax. No p leural effusion or pneumothorax. No edema. No acute osseous abnormality. Moderate size hiatal hernia. Impression: 1: Irregular nodular densities right lower thorax. Differential diagnosis includes infectious/inflamm atory process and malignancy. Reviewed, dictated and finalized at location A. Impression: 1: Irregular nodular densities right lower thorax. Differential diagnosis inclu robert infectious/inflammatory process and malignancy.
--- NOTE | ~2022-06-15 | CT_ITS ---
EXAMINATION: CT abdomen pelvis w con DATE: 06/15/2022 05:56 INDICATION: Nausea, vomiting and epigastric pain TECHNIQUE: Computed tomography (CT) of the abdomen and pelvis was performed with 100 cc Omnipaque 350 intravenous contrast. The dose-length product was 369.72 mGy-cm. Automated exposure control and iter ative reconstruction technique were employed. COMPARISON: CT dated 06/11/2015 FINDINGS: There are irregular nodular densities and interstitial infiltrates of the right middle lobe . Largest nodule measures 1.8 x 1.3 cm. Heart size normal. No significant pleural or pericardial effu mahsa. No significant vascular abnormality. Moderate size hiatal hernia. No lymphadenopathy. Nonobstru ctive bowel gas pattern. Normal appendix. Nonobstructive bowel gas pattern. The spleen, pancreas, adr enal glands and left kidney are unremarkable. There are right renal cysts. No free air or free fluid. Colonic diverticulosis without evidence for diverticulitis. Severe lower thoracic and lumbar spine. Chronic wedge-shaped deformities of T11 and T12. Status post hysterectomy. There is a urachal remnant of the bladder. Small fat-containing umbilical hernia. IMPRESSION: 1. Irregular nodular densities with adjacent interstitial infiltrates of the right middle lobe, large st nodule measuring up to 1.8 cm. Differential diagnosis includes sequela of previous infectious/infl ammatory process, primary bronchogenic carcinoma and metastatic disease. 2: Moderate size hiatal hernia. Reviewed, dictated and finalized at location A. IMPRESSION: 1. Irregular nodular densities with adjacent interstitial infiltrates of the ri ght middle lobe, largest nodule measuring up to 1.8 cm. Differential diagnosis includes sequela of previous infectious/inflammatory process, primary bronchoge luana carcinoma and metastatic disease. 2: Moderate size hiatal hernia.
[2022-06-15 01:42] VITALS: BP 137/77; PULSE 78; RESP 18; TEMP 36.3; O2SAT 98
--- NOTE | 2022-06-15 02:40 | ECG_ITS ---
Measurements Intervals [place] Rate: 74 P: 48 SC: 164 QRS: -12 QRSD: 89 T: -1 QT: 378 QTc: 420 Interpretive Statements SINUS RHYTHM LOW QRS VOLTAGE IN PRECORDIAL LEADS [QRS DEFLECTION < 1.0 mV IN CHEST LEADS] BORDERLINE ECG NO PREVIOUS ECG AVAILABLE FOR COMPARISON Electronically Signed On 06-15-2022 15:25:04 CDT by Reynaldo Samuel M.D.
--- NOTE | 2022-06-15 03:22 | ED.NAVMDI ---
HPI - Nausea/Vomiting/Diarrhea General Chief complaint: Nausea/Vomiting/Diarrhea Time Seen by Provider: 06/15/22 03:08 History of Present Illness HPI Narrative: Patient is a 77-year-old female presenting with vomiting and diarrhea. Patient states that for the last 4 hours she has had numerous episodes of vomiting as well as diarrhea. She complains of some epigastric pain as well. States that she had a similar episode several years ago. She denies fevers, chest pain, shortness of breath, cough, dysuria, hematuria, rashes, flank pain. Related Data Home Medications Medication Instructions Recorded Confirmed calcium carbonate 600 mg calcium 600 mg PO DAILY 10/26/19 06/21/22 (1,500 mg) tablet (Calcium) ergocalciferol (vitamin D2) 400 600 unit PO BID 05/22/21 06/21/22 unit capsule zinc 50 mg tablet 50 mg PO DAILY 05/22/21 06/21/22 Allergies Allergy/AdvReac Type Severity Reaction Status Date / Time bacitracin Allergy Mild unknown Verified 06/21/22 10:01 esomeprazole Allergy Mild Unknown Verified 06/21/22 10:01 gramicidin D Allergy Mild Unknown Verified 06/21/22 10:01 neomycin Allergy Mild Unknown Verified 06/21/22 10:01 polymyxin B Allergy Mild Unknown Verified 06/21/22 10:01 Sulfa (Sulfonamide Allergy Mild Unknown Verified 06/21/22 10:01 Antibiotics) cefuroxime Allergy Unknown Unknown Verified 06/21/22 10:01 latex Allergy Unknown unknown Verified 06/21/22 10:01 moxifloxacin Allergy Unknown Unknown Verified 06/21/22 10:01 streptomycin Allergy Unknown Unknown Verified 06/21/22 10:01 ketorolac [From Toradol] Allergy Hives Verified 06/21/22 10:01 macrobid AdvReac Intermediate Nausea Uncoded 06/21/22 10:01 Review of Systems Review of Systems: All systems reviewed & are unremarkable except as noted in HPI and below PMFSH Past Medical History Medical History (Updated 06/21/22 @ 11:24 by Claire Bassett APRN) Asthma Depression Diabetes Diarrhea IBS (irritable bowel syndrome) Irregular heart beat Lumbar radiculopathy, right Myalgia Osteoporosis Tendinitis of left rotator cuff Surgical History Surgical History H/O hysterectomy with oophorectomy History of cholecystectomy 2003 History of shoulder surgery 2014, right, rotator cuff Family History Family History Other Asthma Diabetes mellitus Family history of arthritis Family history of chronic obstructive pulmonary disease Family history of congenital heart disease Family history of osteoarthritis Social History Social History Smoking status: Never smoker Second hand tobacco smoke exposure: No Alcohol intake: current Alcohol use details: rarely Substance use: never Substance use type: does not use Living arrangements: with family Occupation/Education: retired Gender identity (if verbalized by the patient): Female Sexual Orientation (if Verbalized by the Patient): Straight or Heterosexual Spiritual care concerns: No Agree to blood products: Yes Exam Narrative: GENERAL: Well-appearing, well-nourished, and in no acute distress. HEAD: Normocephalic, atraumatic. EYES: PERRLA and EOMI. ENT: Nares clear, no rhinorrhea or epistaxis. Mucous membranes moist. NECK: Supple. CHEST: Clear to auscultation. No respiratory distress. HEART: Regular rate and rhythm. Normal peripheral pulses. ABDOMEN: Soft, mild epigastric tenderness, no guarding or rebound EXTREMITIES: Normal range of motion. No edema. SKIN: Warm, dry, no rash. NEURO: No focal deficits. Alert and oriented x3. PSYCH: Normal mood and affect. Course Vital Signs Vital signs: Vital Signs Temperature 97.3 F L 06/15/22 01:42 Pulse Rate 78 06/15/22 01:42 Respiratory Rate 18 06/15/22 01:42 Blood Pressure 137/77 06/15/22 01:42 Pulse Oximetry 98 06/15/22 01:42 Oxygen
--- NOTE | 2022-06-15 03:40 | PC.NURSE ---
During downtime pt was given via IV 1L of NS, 20 mg of pepcid, and 4 mg of Zofran at 0215
[2022-06-15 03:56] LABS: Alanine Aminotransferase 14 U/L (6-35); Albumin Level 4.6 g/dL (3.5-5.1); Alkaline Phosphatase 109 U/L (38-126); Anion Gap 9 mmol/L (8-16); Aspartate Amino Transferase 25 U/L (14-36); Bilirubin,Total 0.5 mg/dL (0.2-1.3); Blood Urea Nitrogen 20 mg/dL (7-17); Calcium 9.2 mg/dL (8.4-10.2); Carbon Dioxide 25 mmol/L (22-30); Chloride 105 mmol/L (98-107); Estimated Glomerular Filt Rate > 60; Glucose 147 mg/dL (65-110); Potassium 3.7 mmol/L (3.4-5.0); Sodium 139 mmol/L (137-145)
[2022-06-15 04:46] VITALS: BP 130/63; PULSE 85; RESP 22; O2SAT 97
[2022-06-15 06:02] VITALS: PULSE 85
[2022-06-15] MEDS: PROPRANOLOL HCL 20 MG TABLET 60 MG PO (06:02)
[2022-06-15 06:04] VITALS: BP 115/64; PULSE 88; RESP 18; O2SAT 97
[2022-06-15] MEDS: ONDANSETRON HCL ODT 4 MG TABLET PO (06:51)
[2022-06-15 07:29] VITALS: BP 115/60; PULSE 80; RESP 18; O2SAT 97
== END 2022-06-15 07:31 | disposition home or self-care (01) ==
PROVIDERS: Emergency Provider Emergency Medicine; PCP Family Medicine Adolescent Medicine
DX: R11.2 Nausea with vomiting, unspecified (principal); R19.7 Diarrhea, unspecified; R91.1 Solitary pulmonary nodule; J45.909 Unspecified asthma, uncomplicated; E11.9 Type 2 diabetes mellitus without complications; K58.9 Irritable bowel syndrome, unspecified; M81.0 Age-related osteoporosis without current pathological fracture; Z90.710 Acquired absence of both cervix and uterus; Z90.49 Acquired absence of other specified parts of digestive tract; R94.31 Abnormal electrocardiogram [ECG] [EKG]
CPT/HCPCS: 36415; 71045; 74177; 80053; 93005; 96365; 99284; A9270; J0131; Q9967

== ENCOUNTER 2022-07-01 08:19 | Emergency (ER) | payer MEDICARE, SELFPAY ==
--- NOTE | 2022-07-01 08:29 | ED.WOUNDLAC ---
HPI - Wound/Laceration General Chief Complaint: Skin/Abscess/Foreign Body Stated Complaint: Skin tear, swelling, and pain on right leg Time Seen by Provider: 07/01/22 08:58 Source: patient and RN notes reviewed Mode of arrival: ambulatory Limitations: no limitations History of Present Illness HPI narrative: 77-year-old female presents concern for skin tear on her right ankle. She reports approximately 2 weeks ago she was scratched by her daughter's dog and had a triangular shaped skin tear. She reports she was seen by her primary, they placed Steri-Strips on it. She reports since then the wound has become red and swollen, tender. Reports it is difficult to walk. She reports she was prescribed Keflex in 2 days ago, she reports her symptoms have not improved in 48 hours on the antibiotics. She denies purulent drainage. Related Data Home Medications Medication Instructions Recorded Confirmed calcium carbonate 600 mg calcium 600 mg PO DAILY 10/26/19 07/01/22 (1,500 mg) tablet (Calcium) ergocalciferol (vitamin D2) 400 600 unit PO BID 05/22/21 07/01/22 unit capsule zinc 50 mg tablet 50 mg PO DAILY 05/22/21 07/01/22 Allergies Allergy/AdvReac Type Severity Reaction Status Date / Time ketorolac [From Toradol] Allergy Intermediate Hives Verified 07/01/22 09:05 bacitracin Allergy Mild Rash Verified 07/01/22 09:05 cefuroxime Allergy Mild Rash Verified 07/01/22 09:05 esomeprazole Allergy Mild Unknown Verified 07/01/22 08:36 gramicidin D Allergy Mild Rash Verified 07/01/22 09:05 latex Allergy Mild Rash Verified 07/01/22 09:05 moxifloxacin Allergy Mild Rash Verified 07/01/22 09:05 neomycin Allergy Mild Rash Verified 07/01/22 09:05 polymyxin B Allergy Mild Rash Verified 07/01/22 09:05 streptomycin Allergy Mild Rash Verified 07/01/22 09:05 Sulfa (Sulfonamide Allergy Mild Rash Verified 07/01/22 09:05 Antibiotics) nitrofurantoin AdvReac Mild Nausea Verified 07/01/22 09:05 [From Macrobid] Review of Systems Review of Systems: CONSTITUTIONAL: Denies malaise, chills, sweats, or fever. SKIN: Reports infected skin tear on her right ankle MUSCULOSKELETAL: Denies muscle skeletal pain NEUROLOGIC: Denies numbness, weakness All systems reviewed & are unremarkable except as noted in HPI and below PMFSH Past Medical History Medical History (Updated 07/01/22 @ 09:07 by Kiki May NP) Asthma Depression Diabetes Diarrhea IBS (irritable bowel syndrome) Irregular heart beat Lumbar radiculopathy, right Myalgia Osteoporosis Tendinitis of left rotator cuff Surgical History Surgical History H/O hysterectomy with oophorectomy History of cholecystectomy 2003 History of shoulder surgery 2014, right, rotator cuff Family History Family History Other Asthma Diabetes mellitus Family history of arthritis Family history of chronic obstructive pulmonary disease Family history of congenital heart disease Family history of osteoarthritis Social History Social History Smoking status: Never smoker Second hand tobacco smoke exposure: No Alcohol intake: current Alcohol use details: rarely Substance use: never Substance use type: does not use Living arrangements: with family Occupation/Education: retired Gender identity (if verbalized by the patient): Female Sexual Orientation (if Verbalized by the Patient): Straight or Heterosexual Spiritual care concerns: No Agree to blood products: Yes Comments At time of signature, agree with nursing past medical, surgical, social and family history. There is no relevant family history pertinent to the presenting complaint Exam Narrative: GENERAL: Well-appearing, well-nourished, and in no acute distress. HEAD: Normocephalic, atraumatic. EYES: PERRLA, conjunctivae clear, and E
[2022-07-01 08:32] VITALS: BP 127/69; PULSE 62; RESP 16; TEMP 36.7; O2SAT 99
== END 2022-07-01 09:14 | disposition home or self-care (01) ==
PROVIDERS: Emergency Provider Nurse Practitioner; PCP Family Medicine Adolescent Medicine
DX: S91.011A Laceration without foreign body, right ankle, initial encounter (principal); L08.9 Local infection of the skin and subcutaneous tissue, unspecified; W54.8XXA Other contact with dog, initial encounter; J45.909 Unspecified asthma, uncomplicated; E11.9 Type 2 diabetes mellitus without complications; M81.0 Age-related osteoporosis without current pathological fracture
CPT/HCPCS: 99213; G0463

== ENCOUNTER 2022-08-21 17:57 | Emergency (ER) | payer MEDICARE, SELFPAY ==
--- NOTE | ~2022-08-21 | CT_ITS ---
EXAMINATION: CT abdomen pelvis w con DATE: 08/21/2022 22:12 INDICATION: abdominal pain, RLQ TECHNIQUE: Computed tomography (CT) of the abdomen and pelvis was performed with 100 mL Omnipaque-350 intravenous contrast. Automated exposure control and iterative reconstruction technique were employe d. The dose-length product was 365.84 mGy-cm. COMPARISON: 06/15/2022. FINDINGS: Lower thorax: Large hiatal hernia. Bibasilar scar. Decreasing size and prominence of the right middle lobe changes previously described, likely resolving infectious/inflammatory process. Liver: Normal. Biliary/Gallbladder: Gallbladder is absent. No bile duct dilation. Pancreas: No mass or duct dilation. Spleen: Normal. Adrenals:No mass. Kidneys: Simple right midpole cysts. Multiple bilateral hypodensities that are too small to character ize but also likely represent cysts. No obstructive calcification. No suspicious mass. No hydronephro sis. GI tract: No small or large bowel dilation. Normal appendix. Diverticulosis without diverticulitis. Mesentery/Peritoneum: No ascites, mass, or free air. Retroperitoneum: No mass. Pelvis: Well distended urinary bladder with mild surrounding inflammatory change. Absent uterus.. Soft Tissues: Soft tissues and body wall unremarkable. Bones: No acute osseous finding. IMPRESSION: Mild urinary bladder wall inflammatory change, may represent cystitis in the appropriate clinical con text. Reviewed, dictated and finalized at location K. IMPRESSION: Mild urinary bladder wall inflammatory change, may represent cystitis in the ap propriate clinical context.
[2022-08-21 17:58] VITALS: BP 135/69; PULSE 77; RESP 16; TEMP 36.6; O2SAT 100
[2022-08-21 18:16] LABS: Basophils Percent Auto 0.6 % (0.2-1.2); Eosinophils Percent Auto 0.6 % (0-4.4); Hematocrit 34.6 % (37.0-47.0); Hemoglobin 10.3 g/dL (12.0-15.0); Immature Granulocyte Absolute 0.03 K/mm3 (0.00-0.031); Immature Granulocyte Percent A 0.5 % (0-0.5); Lymphocytes Percent Auto 32.2 % (18.3-44.2); Mean Corpuscular HGB Conc 29.8 g/dl (32-36); Mean Corpuscular Hemoglobin 25.5 pg (26-34); Mean Corpuscular Volume 85.6 fl (80-100); Mean Platelet Volume 8.5 fl (7.4-10.4); Monocytes Absolute Auto 0.5 K/mm3 (0.1-0.6); Monocytes Percent Auto 7.2 % (2.6-8.5); Neutrophils Absolute Auto 3.7 K/mm3 (1.3-6.7); Neutrophils Percent Auto 58.9 % (45.5-73.1); Platelet Count Result 546 k/mm3 (150-375); Red Blood Count 4.04 M/mm3 (4.2-5.4); Red Cell Distribution Width 17.1 % (11.5-14.5); White Blood Count 6.2 K/mm3 (4.5-10.0)
[2022-08-21 18:29] LABS: Alanine Aminotransferase 18 U/L (6-35); Albumin Level 4.6 g/dL (3.5-5.1); Alkaline Phosphatase 95 U/L (38-126); Anion Gap 8 mmol/L (8-16); Aspartate Amino Transferase 32 U/L (14-36); Bilirubin,Total 0.3 mg/dL (0.2-1.3); Blood Urea Nitrogen 9 mg/dL (7-17); Calcium 9.3 mg/dL (8.4-10.2); Carbon Dioxide 23 mmol/L (22-30); Chloride 105 mmol/L (98-107); Estimated Glomerular Filt Rate > 60; Glucose 168 mg/dL (65-110); Lipase 102 U/L (23-300); Potassium 4.3 mmol/L (3.4-5.0); Sodium 136 mmol/L (137-145)
[2022-08-21 18:41] LABS: Appearance Urine Clear (Clear); Bilirubin Urine Negative (Negative); Blood Urine Negative (Negative); Color Urine Yellow (Yellow); Glucose Urine UA Negative (Negative); Ketones Urine Negative (Negative); Leukocyte Esterase Ur Negative LEU/UL (Negative); Nitrate Urine Negative (Negative); Protein Urine Negative (Negative); Specific Grav Ur 1.006 (1.001-1.035); Urobilinogen Urine 0.2 mg/dL (<2.0); pH Urine 6.5 (5.0-9.0)
[2022-08-21 18:43] LABS: Platelet Estimate Increased (Adequate)
[2022-08-21 18:44] LABS: Anisocytosis 1+ (NORMAL); Hypochromasia 1+ (NORMAL); Poikilocytosis 1+ (NORMAL)
[2022-08-21 18:45] LABS: Schistocytes None Seen (NORMAL)
[2022-08-21 18:52] LABS: Add Urine Microscopic? NO
[2022-08-21 20:51] VITALS: BP 145/69; PULSE 68; RESP 18; O2SAT 100
--- NOTE | 2022-08-21 21:32 | ED.ABDPAIN ---
HPI - Abdominal Pain General Chief Complaint: Abdominal Pain <Kaur Cason PA-C - Last Filed: 08/22/22 04:18> Stated Complaint: ABD PAIN,CONSTIPATION <Kaur Cason PA-C - Last Filed: 08/22/22 04:18> Time Seen by Provider: 08/21/22 21:18 <Kaur Cason PA-C - Last Filed: 08/22/22 04:18> History of Present Illness HPI narrative: 77 y/o with a history of type 2 diabetes, hyperlipidemia, hypothyroidism, GERD reports for evaluation for RLQ abdominal pain and constipation for approximately 1 week. Patient states she has IBS and struggles with constipation regularly. She was advised by her PCP Dr. Rebolledo to drink a bottle of magnesium citrate 1 week ago without improvement. She reports today due to persistence of pain and discomfort. She describes the pain as cramping. Her last bowel movement was 4-1/2 hours ago and small in caliber. She does decreased frequency of flatulance. She also is complaining of vaginal burning and frequent bacterial vaginosis. States she contacted her [employer] who prescribed her Flagyl which she plans to fill tomorrow. She is also currently taking cefdinir prescribed by her nephew who is an ENT for a sinus infection. She denies nausea, vomiting, chest pain or shortness of breath, fever, diarrhea, dysuria, hematuria, melena. She does report having hemorrhoids which is currently being treated by her PCP with topical steroids. She has been using steroids for 1 week with improvement in hemorrhoids. <Kaur Cason PA-C - Last Filed: 08/22/22 04:18> Related Data Home Medications: Home Medications Medication Instructions Recorded Confirmed calcium carbonate 600 mg calcium 600 mg PO DAILY 10/26/19 07/01/22 (1,500 mg) tablet (Calcium) ergocalciferol (vitamin D2) 400 600 unit PO BID 05/22/21 07/01/22 unit capsule zinc 50 mg tablet 50 mg PO DAILY 05/22/21 07/01/22 <Kaur Cason PA-C - Last Filed: 08/22/22 04:18> Allergies/Adverse Reactions: Allergies Allergy/AdvReac Type Severity Reaction Status Date / Time ketorolac [From Toradol] Allergy Intermediate Hives Verified 08/21/22 20:55 bacitracin Allergy Mild Rash Verified 08/21/22 20:55 cefuroxime Allergy Mild Rash Verified 08/21/22 20:55 esomeprazole Allergy Mild Unknown Verified 08/21/22 20:55 gramicidin D Allergy Mild Rash Verified 08/21/22 20:55 latex Allergy Mild Rash Verified 08/21/22 20:55 moxifloxacin Allergy Mild Rash Verified 08/21/22 20:55 neomycin Allergy Mild Rash Verified 08/21/22 20:55 polymyxin B Allergy Mild Rash Verified 08/21/22 20:55 streptomycin Allergy Mild Rash Verified 08/21/22 20:55 Sulfa (Sulfonamide Allergy Mild Rash Verified 07/10/22 08:45 Antibiotics) nitrofurantoin AdvReac Mild Nausea Verified 07/10/22 08:45 [From Macrobid] <Kaur Cason PA-C - Last Filed: 08/22/22 04:18> Review of Systems Review of Systems: CONSTITUTIONAL: Denies fever, chills EYES: Denies visual changes, redness, or discharge. ENT: Denies rhinorrhea, congestion, sore throat, or otalgia. CARDIOVASCULAR: Denies chest pain, palpitations, or edema. RESPIRATORY: Denies cough or dyspnea. GASTROINTESTINAL: See HPI GENITOURINARY: Denies dysuria or hematuria. SKIN: Denies rash or itching. MUSCULOSKELETAL: Denies back pain, joint pain, or myalgia. NEUROLOGIC: Denies headache, numbness, dizziness, or weakness. PSYCHIATRIC: Denies anxiety or depression. <Kaur Cason PA-C - Last Filed: 08/22/22 04:18> [facility] Past Medical History Medical History: Medical History Asthma Depression Diabetes Diarrhea IBS (irritable bowel syndrome) Irregular heart beat Lumbar radiculopathy, right Myalgia Osteoporosis Tendinitis of left rotator cuff <Kaur Cason PA-C - Last Filed: 08/22/22 04:18> Surgical History Surgical History: Surgical History H/O hysterec
[2022-08-21] MEDS: ACETAMINOPHEN 500 MG TABLET 1000 MG PO (21:45)
[2022-08-21] MEDS: SODIUM CHLORIDE 0.9% IV 1,000 ML 999 ML IV CONT (21:54)
[2022-08-21] MEDS: DICYCLOMINE HCL 10 MG CAPSULE 20 MG PO (22:34)
== END 2022-08-21 23:10 | disposition home or self-care (01) ==
PROVIDERS: Emergency Medicine; Emergency Provider Physician Assistant; PCP Family Medicine Adolescent Medicine
DX: K59.00 Constipation, unspecified (principal); R10.31 Right lower quadrant pain; E11.9 Type 2 diabetes mellitus without complications; E78.5 Hyperlipidemia, unspecified; E03.9 Hypothyroidism, unspecified
CPT/HCPCS: 36415; 74177; 80053; 81003; 83690; 85025; 96360; 99284; A9270; J7030; Q9967

== ENCOUNTER → 2022-11-23 07:31 | Outpatient (CLI) | payer MEDICARE, SELFPAY ==
--- NOTE | ~2022-11-23 | XR_ITS ---
EXAMINATION: XR chest 2V DATE: 11/23/2022 07:50 INDICATION: Cough. Recent COVID-19 infection. TECHNIQUE: Frontal and lateral views of the chest were obtained. COMPARISON: Chest single view 06/15/2022, CT abdomen and pelvis 08/21/2022 FINDINGS: There is mild scarring at the lung apices. There is mild atelectasis in the lower lung zone s. Calcified right lung nodules are consistent with old granulomatous disease. No pleural effusion or pneumothorax or the heart size is normal. There is a moderate-sized hiatal hernia. Surgical clips in the right upper quadrant are likely from cholecystectomy. IMPRESSION: 1. Mild scarring at the lung apices and mild atelectasis in the lower lung zones. 2. Moderate-sized hiatal hernia. Reviewed, dictated and finalized at location E. IMPRESSION: 1. Mild scarring at the lung apices and mild atelectasis in the lower lung zone s. 2. Moderate-sized hiatal hernia.
== END ==
PROVIDERS: PCP Family Medicine Adolescent Medicine; Visit Provider Family Medicine Adolescent Medicine
DX: R05.9 Cough, unspecified (principal); K44.9 Diaphragmatic hernia without obstruction or gangrene; J98.11 Atelectasis
CPT/HCPCS: 71046

== ENCOUNTER → 2022-12-13 07:36 | Outpatient (CLI) | payer MEDICARE, SELFPAY ==
--- NOTE | ~2022-12-13 | XR_ITS ---
Lumbosacral Spine: AP and lateral views Clinical History: Pain Findings: Levoscoliosis of the thoracolumbar spine is similar to prior exam. Mild chronic anterior we dging deformity of T11 and T12 are unchanged. No definite fracture the lumbar spine. Stable grade 1 a nterolisthesis of L5 over S1. There is severe degenerative disc narrowing at L1-L2 and L5-S1. There i s moderate to advanced facet arthropathy throughout the lumbar spine. The sacroiliac joints are vicente lly outlined. Impression: Overall, no significant change from prior exam. Stable grade 1 anterolisthesis of L5 over S1, with levoscoliosis of the thoracolumbar spine. Mild chronic anterior wedging deformities of T11 and T12. Moderate degenerative spondylosis of lumbar spine otherwise, as noted above. Reviewed, dictated and finalized at [facility]. Impression: Overall, no significant change from prior exam. Stable grade 1 anterolisthesis of L5 over S1, with levoscoliosis of the thoraco lumbar spine. Mild chronic anterior wedging deformities of T11 and T12. Moderate degenerative spondylosis of lumbar spine otherwise, as noted above.
== END ==
PROVIDERS: PCP Family Medicine Adolescent Medicine; Visit Provider Family Medicine Adolescent Medicine
DX: M81.0 Age-related osteoporosis without current pathological fracture (principal); M48.061 Spinal stenosis, lumbar region without neurogenic claudication; M54.50 Low back pain, unspecified; M43.06 Spondylolysis, lumbar region; M48.54XA Collapsed vertebra, not elsewhere classified, thoracic region, initial encounter for fracture
CPT/HCPCS: 72100

== ENCOUNTER 2023-01-03 14:42 | Outpatient (CLI) | payer MEDICARE, SELFPAY ==
--- NOTE | 2023-01-07 16:14 | WPDHOLTEREM ---
Holter/Event Monitor Holter/Event Monitor Date of procedure: 01/03/23 Holter/Event Procedure: 48 Hr Holter Monitor Indications: Irregular heart beat Conclusion: 1. 48 hour holter monitor on 01/03/23. 2. Underlying rhythm is sinus rhythm. HR range 56-103 bpm; average HR 68 bpm. 3. There are 168 premature supraventricular complexes, 19 supraventricular couplets and 6 supraventricular bigeminy. No supraventricular tachycardia. 4. There is 1 premature ventricular complex. No ventricular tachycardia. 5. No sinoatrial or atrioventricular blocks. No significant pauses greater than 2 seconds. 6. Patient reports symptoms of irregular beat, out of breath, fast heart beat which demonstrate sinus rhythm, HR range 61-78 bpm and 1 PAC.
== END 2023-01-03 14:43 | disposition home or self-care (01) ==
LOC: ANHCARD 14:44
PROVIDERS: PCP Family Medicine Adolescent Medicine; Visit Provider Family Medicine Adolescent Medicine
DX: I49.8 Other specified cardiac arrhythmias (principal)
CPT/HCPCS: 93225; 93226

== ENCOUNTER → 2023-01-18 10:38 | Outpatient (CLI) | payer MEDICARE, SELFPAY ==
--- NOTE | ~2023-01-18 | MR_ITS ---
EXAMINATION: MR lumbar spine wo con DATE: 01/18/2023 11:32 INDICATION: Bilateral sciatica, left greater than right with low back pain radiating to the buttocks and posterior upper legs and with left leg numbness TECHNIQUE: Magnetic resonance imaging (MRI) of the lumbar spine was performed without intravenous con trast. Sequences included sagittal T2-weighted FSE, sagittal T2-weighted FS FSE, sagittal T1-weighted FSE, and axial T2-weighted FSE. COMPARISON: Lumbar spine MR dated 10/02/[address] abdomen and pelvis dated 08/21/2022 FINDINGS: S-shaped thoracolumbar scoliosis with 22 degree levoscoliosis from T10 through L1 and with 17 degrees dextroscoliosis from L2 through L5. There is 6 mm right lateral listhesis L4 on L5. 5 mm anterolisth esis L5 on S1. Chronic mild right anterior wedging of T10-L1 and chronic mild posterior vertebral bod y height loss at L5. No acute fractures. No pars interarticularis defects. There is severe disc heigh t loss at T9-T10, L1-L2 and L5-S1 and with right-sided predominance at T11-T12 and T12-L1. Moderate r ight-sided predominant disc height loss at T10-T11, moderate left-sided predominant disc height loss at L3-L4 and L4-L5 and mild disc height loss at L2-L3. There are annular fissures at each of these le vels from T11-T12 through L5-S1 Degenerative fibrovascular endplate changes and remodeling at the end plates associated with the previously noted severe disc height loss. Marrow signal is otherwise unrem arkable. The conus medullaris terminates at L1-L2. There is normal signal in the caudal spinal cord. A couple T2 hyperintense cysts at the right kidney measuring up to 1.3 cm. Paravertebral soft tissues are otherwise unremarkable. The following disc levels are specifically discussed: T12-L1: Disc is bulging. There is mild left and moderate right facet joint osteoarthritis. There is m oderate right and mild left neural foraminal stenosis. There is mild central canal stenosis. L1-L2: Disc is bulging. There is mild to moderate bilateral facet joint osteoarthritis. There is mild to moderate right and moderate left neural foraminal stenosis. There is mild central canal stenosis. L2-L3: Disc is bulging. There is mild hypertrophy of the ligamentum flavum. There is severe bilatera l facet joint osteoarthritis. There is mild right and moderate left neural foraminal stenosis. There is mild central canal stenosis. L3-L4: Disc is bulging with new left paracentral annular fissure with disc material extending 1.3 cm cephalad to the level of the inferior endplate of L3. There is hypertrophy of the ligamentum flavum. There is severe right and moderate left facet joint osteoarthritis. There is mild to moderate right and moderate to severe left neural foraminal stenosis. There is mild to moderate central canal stenos is. L4-L5: Disc is bulging with central disc extrusion with disc material extending up to 5 mm caudal to the level of the superior endplate of L5. There is hypertrophy of the ligamentum flavum. There is sev ere bilateral facet joint osteoarthritis. There is severe left and moderate to severe right neural fo raminal stenosis. There is severe central canal stenosis. L5-S1: Disc is bulging with central disc extrusion with disc material extending up to 8 mm cephalad t o the level of the inferior endplate of L5. There is severe bilateral facet joint osteoarthritis. The re is moderate to severe bilateral neural foraminal stenosis. There is mild central canal stenosis. IMPRESSION: 1. No interval change in a mild to moderate S-shaped lumbar lower thoracic scoliosis with interval pr ogression of severe spondylosis. Reviewed, dictated and finalized at location A. EASER IMPRESSION: 1. No interval change in a mild to moderate S-shaped lumbar lower thoracic scol iosis with i
== END ==
PROVIDERS: PCP Family Medicine Adolescent Medicine; Visit Provider Family Medicine Adolescent Medicine
DX: M47.896 Other spondylosis, lumbar region (principal)
CPT/HCPCS: 72148

== ENCOUNTER → 2023-01-25 12:21 | Outpatient (CLI) | payer MEDICARE, SELFPAY ==
--- NOTE | ~2023-01-25 | MM_ITS ---
EXAMINATION: MM screening corbin BI w keyshawn HISTORY: Screening mammogram TECHNIQUE: Craniocaudal and mediolateral oblique 3-D tomosynthesis images were obtained and synthetic 2-D images were generated. CAD analysis was submitted and interpreted. COMPARISON: 01/10/2022 diagnostic right mammogram and limited right breast ultrasound 12/26/2021, 08/31/2020 bilateral screening mammogram examinations BREAST PARENCHYMAL COMPOSITION: There are scattered areas of fibroglandular density. FINDINGS: Stable postsurgical architectural distortion in the posterior mid outer right breast. Occas ional benign calcifications. There is no evidence of suspicious mass, calcification, or architectural distortion to suggest malignancy in either breast. There has been no suspicious interval change. IMPRESSION: 1. No mammographic evidence of malignancy. 2. Recommend routine screening mammography in one year. BI-RADS Category 2: Benign finding(s). Reviewed, dictated and finalized at location A. EL STAFF MEMBER
== END ==
PROVIDERS: PCP Obstetrics & Gynecology; Visit Provider Obstetrics & Gynecology
DX: Z12.31 Encounter for screening mammogram for malignant neoplasm of breast (principal)
CPT/HCPCS: 77063; 77067

== ENCOUNTER 2023-02-23 08:03 | Emergency (ER) | payer MEDICARE, SELFPAY ==
--- NOTE | 2023-02-23 08:17 | ED.WOUNDLAC ---
HPI - Wound/Laceration General Chief Complaint: Wound/Laceration Stated Complaint: left leg skin Tear Time Seen by Provider: 02/23/23 08:18 Source: patient History of Present Illness HPI narrative: 77-year-old female presents with skin tear to left knee. Patient reports that her and her have been ill with GI illness. States that she was nauseated in the middle of the night around midnight and was on her knees next to toilet. States she vomited 1 time. Was getting up from the floor and cut her knee on tile floor. Arrived with non adherent gauze to left knee. Bleeding controlled. Last tetanus 7 years ago. Ambulatory with steady gait. All systems reviewed and negative except as noted above. Related Data Home Medications Medication Instructions Recorded Confirmed calcium carbonate 600 mg calcium 600 mg PO DAILY 10/26/19 02/23/23 (1,500 mg) tablet (Calcium) ondansetron HCl 4 mg tablet 4 mg PO Q8H 12/12/22 02/23/23 cefuroxime axetil 500 mg tablet See Rx Instructions .Route .COMPLEX 02/23/23 02/23/23 methylprednisolone 4 mg tablets in See Rx Instructions .Route .COMPLEX 02/23/23 02/23/23 a dose pack Allergies Allergy/AdvReac Type Severity Reaction Status Date / Time ketorolac [From Toradol] Allergy Intermediate Hives Verified 02/23/23 08:12 bacitracin Allergy Mild Rash Verified 02/23/23 08:12 cefuroxime Allergy Mild Rash Verified 02/23/23 08:12 esomeprazole Allergy Mild Unknown Verified 02/23/23 08:12 gramicidin D Allergy Mild Rash Verified 02/23/23 08:12 latex Allergy Mild Rash Verified 02/23/23 08:12 moxifloxacin Allergy Mild Rash Verified 02/23/23 08:12 neomycin Allergy Mild Rash Verified 02/23/23 08:12 polymyxin B Allergy Mild Rash Verified 02/23/23 08:12 streptomycin Allergy Mild Rash Verified 02/23/23 08:12 Sulfa (Sulfonamide Allergy Mild Rash Verified 02/23/23 08:12 Antibiotics) nitrofurantoin AdvReac Mild Nausea Verified 02/23/23 08:12 [From Macrobid] Review of Systems Review of Systems: CONSTITUTIONAL: Denies fever, chills, or sweats. EYES: Denies visual changes, redness, or discharge. ENT: Denies rhinorrhea, congestion, sore throat, or otalgia. CARDIOVASCULAR: Denies chest pain, palpitations, or edema. RESPIRATORY: Denies cough or dyspnea. GASTROINTESTINAL: Denies abdominal pain, nausea, vomiting, or diarrhea. GENITOURINARY: Denies dysuria or hematuria. SKIN: Denies rash or itching. Reports skin tear to left knee. MUSCULOSKELETAL: Denies back pain, joint pain, or myalgia. NEUROLOGIC: Denies headache, numbness, or weakness. PSYCHIATRIC: Denies anxiety or depression. All other systems reviewed are negative, except as documented in HPI. [facility] Past Medical History Medical History Anxiety Asthma Depression Diabetes Diarrhea Hyperlipidemia Hypothyroidism, unspecified IBS (irritable bowel syndrome) Irregular heart beat Lumbar radiculopathy, right Myalgia Osteoporosis Screening mammogram, encounter for Tendinitis of left rotator cuff Surgical History Surgical History H/O hysterectomy with oophorectomy (~1993) H/O right breast biopsy (~1992) benign History of cholecystectomy 2003 History of shoulder surgery 2014, right, rotator cuff Family History Family History Other Asthma Diabetes mellitus Family history of arthritis Family history of chronic obstructive pulmonary disease Family history of congenital heart disease Family history of osteoarthritis Social History Social History (Updated 10/24/22 @ 10:08 by MARY Mcgovern) Smoking status: Never smoker Second hand tobacco smoke exposure: No Alcohol intake: current Alcohol use details: rarely Substance use: never Substance use type: does not use Lack of Transportation: No Lack of Food: Never True Current Housing: I
[2023-02-23 08:18] VITALS: BP 114/63; PULSE 70; RESP 16; TEMP 37.1; O2SAT 99
== END 2023-02-23 08:50 | disposition home or self-care (01) ==
PROVIDERS: Emergency Provider Nurse Practitioner Family; PCP Family Medicine Adolescent Medicine
DX: S81.812A Laceration without foreign body, left lower leg, initial encounter (principal); W26.8XXA Contact with other sharp object(s), not elsewhere classified, initial encounter; E78.5 Hyperlipidemia, unspecified; E03.9 Hypothyroidism, unspecified; E11.9 Type 2 diabetes mellitus without complications; J45.909 Unspecified asthma, uncomplicated
CPT/HCPCS: 99212; G0463

== ENCOUNTER → 2023-04-30 12:06 | Outpatient (CLI) | payer MEDICARE, SELFPAY ==
--- NOTE | ~2023-04-30 | XR_ITS ---
EXAM: XR hand LT 2V DATE: 04/30/2023 12:32 HISTORY: Left hand wrist pain. No known injury . COMPARISON: X-ray left wrist 04/02/2016. FINDINGS: Decreased mineralization. No fracture or dislocation. No lytic or blastic lesion. Moderate scattered arthritic changes, typical of osteoarthritis, present in the interphalangeal joints of the fingers and thumb, first through third MCP joints, the trapeziometacarpal joint, and the triscaphe j oint. No erosion or periosteal change. Soft tissues within normal limits. IMPRESSION: Osteopenia. 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 Reviewed, dictated and finalized at location K. E CHANGER IMPRESSION: Osteopenia. Moderate polyarticular osteoarthritis of the hand and w rist.
== END ==
PROVIDERS: PCP Family Medicine Adolescent Medicine; Visit Provider Family Medicine Adolescent Medicine
DX: M19.042 Primary osteoarthritis, left hand (principal); M19.032 Primary osteoarthritis, left wrist; M85.88 Other specified disorders of bone density and structure, other site
CPT/HCPCS: 73120

== ENCOUNTER 2023-08-18 03:20 | Emergency (ER) | payer MEDICARE, SELFPAY ==
[2023-08-18 03:20] VITALS: BP 134/80; PULSE 83; RESP 18; TEMP 36.4; O2SAT 95
[2023-08-18 03:26] VITALS: PULSE 85
--- NOTE | 2023-08-18 03:27 | ECG_ITS ---
Test Date: 2023-08-18 03:30:59 Measurements Intervals [place] Rate: 80 P: 214 RI: 110 QRS: -26 QRSD: 86 T: -4 QT: 359 QTc: 415 Interpretive Statements SINUS RHYTHM WITH SHORT RI INTERVAL LOW QRS VOLTAGE IN PRECORDIAL LEADS [QRS DEFLECTION < 1.0 mV IN CHEST LEADS] POOR R-WAVE PROGRESSION ABNORMAL ECG No previous ECG available for comparison Electronically Signed On 08-18-2023 08:48:15 CDT by Reynaldo Samuel M.D.
[2023-08-18] MEDS: SODIUM CHLORIDE 0.9% IV 1,000 ML 999 ML IV CONT (04:19)
[2023-08-18] MEDS: ONDANSETRON INJ 4 MG/2 ML VIAL IV PUSH (04:19)
[2023-08-18 04:26] LABS: Basophils Percent Auto 0.5 % (0.2-1.2); Eosinophils Absolute Auto 0.3 K/mm3 (0-0.3); Eosinophils Percent Auto 4.2 % (0-4.4); Hematocrit 38.9 % (37.0-47.0); Hemoglobin 12.4 g/dL (12.0-15.0); Immature Granulocyte Absolute 0.01 K/mm3 (0.00-0.031); Immature Granulocyte Percent A 0.2 % (0-0.5); Lymphocytes Absolute Auto 0.86 K/mm3 (0.9-3.2); Lymphocytes Percent Auto 13.9 % (18.3-44.2); Mean Corpuscular HGB Conc 31.9 g/dl (32-36); Mean Corpuscular Hemoglobin 28.6 pg (26-34); Mean Corpuscular Volume 89.6 fl (80-100); Mean Platelet Volume 8.9 fl (7.4-10.4); Monocytes Absolute Auto 0.5 K/mm3 (0.1-0.6); Monocytes Percent Auto 7.6 % (2.6-8.5); Neutrophils Absolute Auto 4.6 K/mm3 (1.3-6.7); Neutrophils Percent Auto 73.6 % (45.5-73.1); Platelet Count Result 423 k/mm3 (150-375); Red Blood Count 4.34 M/mm3 (4.2-5.4); Red Cell Distribution Width 16.6 % (11.5-14.5); White Blood Count 6.2 K/mm3 (4.5-10.0)
[2023-08-18 04:41] LABS: Lactic Acid Reflex 0.9 mmol/L (0.7-2.0)
[2023-08-18 04:52] LABS: Alanine Aminotransferase 13 U/L (6-35); Albumin Level 4.3 g/dL (3.5-5.1); Alkaline Phosphatase 123 U/L (38-126); Anion Gap 8 mmol/L (4-12); Aspartate Amino Transferase 29 U/L (14-36); Bilirubin,Total 0.4 mg/dL (0.2-1.3); Blood Urea Nitrogen 18 mg/dL (7-17); Calcium 9.6 mg/dL (8.4-10.2); Carbon Dioxide 25 mmol/L (22-30); Chloride 108 mmol/L (98-107); Estimated Glomerular Filt Rate > 60; Glucose 127 mg/dL (65-110); Potassium 3.8 mmol/L (3.4-5.0); Sodium 141 mmol/L (137-145)
[2023-08-18] MEDS: LORazepam INJ (*CRX) 2 MG/ML VIAL 0.5 MG IV PUSH (04:59)
[2023-08-18] MEDS: PROCHLORPERAZINE EDISYLATE 10 MG/2 ML VIAL IV PUSH (04:59)
[2023-08-18 05:39] VITALS: BP 154/73; PULSE 93; RESP 18; O2SAT 98
--- NOTE | 2023-08-18 06:02 | ED.GENADULT ---
HPI - General Adult General Chief complaint: Dizziness Stated complaint: dizzy, nausea Time Seen by Provider: 08/18/23 03:43 History of Present Illness HPI narrative: Patient 78-year-old female who presents emergency department with chief complaint of feeling anxious and nauseated and dizzy. The patient reports that she has had chronic pain issues and attempted to take THC gummies today the patient took a 5 mg dose at 5:00 p.m. and was not feeling FX and took another 5 mg dose the patient reports that she started to feel lightheaded nauseated and felt very strange Related Data Home Medications Medication Instructions Recorded Confirmed calcium carbonate (Calcium 600) 600 mg PO DAILY 10/26/19 08/02/23 ondansetron HCl 4 mg tablet 4 mg PO Q8H 12/12/22 08/02/23 ketoconazole 2 % topical cream 1 applic topical BID PRN Rash 06/10/23 08/02/23 Allergies Allergy/AdvReac Type Severity Reaction Status Date / Time ketorolac [From Toradol] Allergy Intermediate Hives Verified 08/18/23 03:28 bacitracin Allergy Mild Rash Verified 08/18/23 03:28 cefuroxime Allergy Mild Rash Verified 08/18/23 03:28 esomeprazole Allergy Mild Unknown Verified 08/18/23 03:28 gramicidin D Allergy Mild Rash Verified 08/18/23 03:28 latex Allergy Mild Rash Verified 08/18/23 03:28 moxifloxacin Allergy Mild Rash Verified 08/18/23 03:28 neomycin Allergy Mild Rash Verified 08/18/23 03:28 polymyxin B Allergy Mild Rash Verified 08/18/23 03:28 streptomycin Allergy Mild Rash Verified 08/18/23 03:28 Sulfa (Sulfonamide Allergy Mild Rash Verified 08/18/23 03:28 Antibiotics) nitrofurantoin AdvReac Mild Nausea Verified 08/18/23 03:28 [From Macrobid] Review of Systems Review of Systems: A 10 system review of systems was completed on the patient and is negative except for what is stated in the HPI. Nursing and ancillary documentation was reviewed. [facility] Past Medical History Medical History Anxiety Asthma Concussion Depression Diabetes Diarrhea Hyperlipidemia Hypothyroidism, unspecified IBS (irritable bowel syndrome) Irregular heart beat Myalgia Osteoporosis Screening mammogram, encounter for Tendinitis of left rotator cuff Surgical History Surgical History H/O hysterectomy with oophorectomy (~1993) H/O right breast biopsy (~1992) benign History of cholecystectomy 2003 History of shoulder surgery 2014, right, rotator cuff Family History Family History Other Asthma Diabetes mellitus Family history of arthritis Family history of chronic obstructive pulmonary disease Family history of congenital heart disease Family history of osteoarthritis Social History Social History Smoking status: Never smoker Second hand tobacco smoke exposure: No Alcohol intake: current Alcohol use details: rarely Substance use: never Substance use type: does not use Lack of Transportation: No Lack of Food: Never True Current Housing: I Have Housing Concerned About Future Housing: No Difficulty Paying Gas/Electric Bills: No Difficulty Paying for Meds: No Currently Unemployed: No Education: High School Diploma/GED Difficulty w/ Childcare or Family Care: No Living arrangements: with family Additional living arrangements comments: Occupation/Education: retired Gender identity (if verbalized by the patient): Female Sexual Orientation (if Verbalized by the Patient): Straight or Heterosexual Spiritual care concerns: No Agree to blood products: Yes Exam Narrative: GENERAL: Well-appearing, well-nourished, and in no acute distress. HEAD: Normocephalic, atraumatic. EYES: PERRLA and EOMI. ENT: Nares clear, no rhinorrhea or epistaxis. Mucous membranes moist. NECK
[2023-08-18 06:07] LABS: Appearance Urine Clear (Clear); Bacteria Urine None Seen /hpf; Bilirubin Urine Negative (Negative); Blood Urine Negative (Negative); Color Urine Yellow (Yellow); Glucose Urine UA Negative (Negative); Ketones Urine Negative (Negative); Leukocyte Esterase Ur Trace LEU/UL (Negative); Nitrate Urine Negative (Negative); Non Pathogenic Casts 0-2; Protein Urine Negative (Negative); RBC Urine 0-2 /hpf (0-2); Specific Grav Ur 1.012 (1.001-1.035); Squamous Epithelial Cell Urine Occasional /hpf (Few); Urobilinogen Urine 0.2 mg/dL (<2.0); WBC Urine 0-5 /hpf (0-3)
[2023-08-18 06:16] LABS: Add Urine Microscopic? YES
== END 2023-08-18 06:36 | disposition home or self-care (01) ==
PROVIDERS: Emergency Provider Emergency Medicine; PCP Family Medicine Adolescent Medicine
DX: R11.2 Nausea with vomiting, unspecified (principal); E78.5 Hyperlipidemia, unspecified; E11.9 Type 2 diabetes mellitus without complications; E03.9 Hypothyroidism, unspecified
CPT/HCPCS: 36415; 80053; 81001; 83605; 85025; 93005; 96361; 96374; 96375; 99284; J0780; J2060; J2405; J7030

== ENCOUNTER 2023-11-01 23:27 | Emergency (ER) | payer MEDICARE, SELFPAY ==
[2023-11-01 23:28] VITALS: BP 109/60; PULSE 95; RESP 16; TEMP 36.6; O2SAT 97
[2023-11-02 03:04] LABS: Basophils Percent Auto 0.3 % (0.2-1.2); Eosinophils Absolute Auto 0.2 K/mm3 (0-0.3); Eosinophils Percent Auto 1.9 % (0-4.4); Hematocrit 35.7 % (37.0-47.0); Hemoglobin 11.2 g/dL (12.0-15.0); Immature Granulocyte Absolute 0.05 K/mm3 (0.00-0.031); Immature Granulocyte Percent A 0.5 % (0-0.5); Lymphocytes Absolute Auto 1.93 K/mm3 (0.9-3.2); Lymphocytes Percent Auto 18.8 % (18.3-44.2); Mean Corpuscular HGB Conc 31.4 g/dl (32-36); Mean Corpuscular Hemoglobin 27.8 pg (26-34); Mean Corpuscular Volume 88.6 fl (80-100); Mean Platelet Volume 8.7 fl (7.4-10.4); Monocytes Absolute Auto 1.1 K/mm3 (0.1-0.6); Monocytes Percent Auto 10.9 % (2.6-8.5); Neutrophils Absolute Auto 6.9 K/mm3 (1.3-6.7); Neutrophils Percent Auto 67.6 % (45.5-73.1); Platelet Count Result 564 k/mm3 (150-375); Red Blood Count 4.03 M/mm3 (4.2-5.4); Red Cell Distribution Width 17.4 % (11.5-14.5); White Blood Count 10.2 K/mm3 (4.5-10.0)
[2023-11-02 03:14] LABS: Alanine Aminotransferase 12 U/L (6-35); Albumin Level 4.2 g/dL (3.5-5.1); Alkaline Phosphatase 78 U/L (38-126); Anion Gap 11 mmol/L (4-12); Aspartate Amino Transferase 25 U/L (14-36); Bilirubin,Total 0.5 mg/dL (0.2-1.3); Blood Urea Nitrogen 21 mg/dL (7-17); Calcium 8.6 mg/dL (8.4-10.2); Carbon Dioxide 23 mmol/L (22-30); Chloride 101 mmol/L (98-107); Estimated Glomerular Filt Rate > 60; Glucose 137 mg/dL (65-110); Lipase 68 U/L (23-300); Potassium 4.1 mmol/L (3.4-5.0); Sodium 135 mmol/L (137-145)
--- NOTE | 2023-11-02 04:10 | ED.NAVMDI ---
HPI - Nausea/Vomiting/Diarrhea General Chief complaint: Nausea/Vomiting/Diarrhea Stated complaint: n/v/d dizzy abd pain Time Seen by Provider: 11/02/23 02:44 History of Present Illness HPI Narrative: 78-year-old female presenting with nausea and vomiting. States that she has a long history of constipation. She is currently on daily oxycodone for chronic back pain. States that she was struggling with constipation so she took some laxatives earlier. States that then she was able to have numerous liquidy bowel movements. States that she did have diffuse abdominal cramping which has resolved following the diarrhea. States that she did have numerous episodes of vomiting earlier today as well. She started to feel lightheaded so her called EMS as she has had episodes like this in the past where she became so lightheaded that she was unable to stand up. Currently, the patient states that she feels much better. Denies current nausea or abdominal pain. States that she feels thirsty. No further complaints. Related Data Home Medications Medication Instructions Recorded Confirmed calcium carbonate (Calcium 600) 600 mg PO DAILY 10/26/19 10/08/23 ondansetron HCl 4 mg tablet 4 mg PO Q8H 12/12/22 10/08/23 ketoconazole 2 % topical cream 1 applic topical BID PRN Rash 06/10/23 10/08/23 Allergies Allergy/AdvReac Type Severity Reaction Status Date / Time ketorolac [From Toradol] Allergy Intermediate Hives Verified 10/08/23 10:33 bacitracin Allergy Mild Rash Verified 10/08/23 10:33 cefuroxime Allergy Mild Rash Verified 10/08/23 10:33 esomeprazole Allergy Mild Unknown Verified 10/08/23 10:33 gramicidin D Allergy Mild Rash Verified 10/08/23 10:33 latex Allergy Mild Rash Verified 10/08/23 10:33 moxifloxacin Allergy Mild Rash Verified 10/08/23 10:33 neomycin Allergy Mild Rash Verified 10/08/23 10:33 polymyxin B Allergy Mild Rash Verified 10/08/23 10:33 streptomycin Allergy Mild Rash Verified 10/08/23 10:33 Sulfa (Sulfonamide Allergy Mild Rash Verified 10/08/23 10:33 Antibiotics) nitrofurantoin AdvReac Mild Nausea Verified 10/08/23 10:33 [From Macrobid] Review of Systems Review of Systems: All systems reviewed & are unremarkable except as noted in HPI and below PMFSH Past Medical History Medical History Anxiety Asthma Concussion Depression Diabetes Diarrhea Hyperlipidemia Hypothyroidism, unspecified IBS (irritable bowel syndrome) Irregular heart beat Myalgia Osteoporosis Screening mammogram, encounter for Tendinitis of left rotator cuff Surgical History Surgical History H/O hysterectomy with oophorectomy (~1993) H/O right breast biopsy (~1992) benign History of cholecystectomy 2003 History of shoulder surgery 2014, right, rotator cuff Family History Family History Other Asthma Diabetes mellitus Family history of arthritis Family history of chronic obstructive pulmonary disease Family history of congenital heart disease Family history of osteoarthritis Social History Social History Smoking status: Never smoker Second hand tobacco smoke exposure: No Alcohol intake: current Alcohol use details: rarely Substance use: never Substance use type: does not use Lack of Transportation: No Lack of Food: Never True Current Housing: I Have Housing Concerned About Future Housing: No Difficulty Paying Gas/Electric Bills: No Difficulty Paying for Meds: No Currently Unemployed: No Education: High School Diploma/GED Difficulty w/ Childcare or Family Care: No Living arrangements: with family Additional living arrangements comments: Occupation/Education: retired Gender identity (if verbalized by the patient): Female Sexual Orientation (if
[2023-11-02] MEDS: oxyCODONE HCL (*CRX) 5 MG TAB IR 15 MG PO (04:21)
[2023-11-02] MEDS: SODIUM CHLORIDE 0.9% IV 1,000 ML 999 ML IV CONT ×2 (04:23→06:19)
[2023-11-02 04:43] LABS: Add Urine Microscopic? NO; Appearance Urine Clear (Clear); Bacteria Urine None Seen /hpf; Bilirubin Urine Negative (Negative); Blood Urine Non-Hemolyzed Trace (Negative); Color Urine Yellow (Yellow); Glucose Urine UA Negative (Negative); Ketones Urine Negative (Negative); Leukocyte Esterase Ur Negative LEU/UL (Negative); Need Manual Microscopic Reviewed; Nitrate Urine Negative (Negative); Non Pathogenic Casts 0-2; Protein Urine Negative (Negative); RBC Urine 0-2 /hpf (0-2); Specific Grav Ur 1.005 (1.001-1.035); Squamous Epithelial Cell Urine Occasional /hpf (Few); Urobilinogen Urine 0.2 mg/dL (<2.0); WBC Urine 0-5 /hpf (0-3); pH Urine 6.5 (5.0-9.0)
[2023-11-02 05:08] VITALS: BP 98/50; PULSE 75; RESP 19; O2SAT 99
[2023-11-02 06:55] VITALS: BP 102/56; PULSE 88; RESP 18; O2SAT 99
[2023-11-02 07:14] VITALS: BP 109/64; PULSE 79; RESP 18; O2SAT 98
== END 2023-11-02 07:31 | disposition home or self-care (01) ==
PROVIDERS: Emergency Provider Emergency Medicine; PCP Family Medicine Adolescent Medicine
DX: R42 Dizziness and giddiness (principal); R11.2 Nausea with vomiting, unspecified; M54.9 Dorsalgia, unspecified; G89.29 Other chronic pain; Z79.891 Long term (current) use of opiate analgesic; F41.8 Other specified anxiety disorders; J45.909 Unspecified asthma, uncomplicated; E11.9 Type 2 diabetes mellitus without complications; E78.5 Hyperlipidemia, unspecified; E03.9 Hypothyroidism, unspecified
CPT/HCPCS: 36415; 80053; 81003; 83690; 85025; 96360; 96361; 99283; A9270; J7030

== ENCOUNTER 2023-11-25 13:18 | Outpatient (CLI) | payer MEDICARE, SELFPAY ==
--- NOTE | ~2023-11-25 | XR_ITS ---
XR hip RT min 2V Ordering provider: Alfonzo Gauthier MD History: . M25.551 - Pain in right hip . Comparison: None. FINDINGS: BONES: No acute fracture or dislocation. HIP JOINT SPACES: Mild narrowing of the joint space which may indicate osteoarthritic changes. SACROILIAC JOINT SPACES/LUMBAR SPINE: The sacroiliac joint spaces are normal. Mild degenerative carty es of the visualized lower lumbar spine. PUBIC SYMPHYSIS: Normal. SOFT TISSUES: Normal. IMPRESSION: No acute osseous abnormality pelvis and right hip. Reviewed, dictated and finalized at location A.
== END 2023-11-25 13:19 | disposition home or self-care (01) ==
PROVIDERS: PCP Family Medicine Adolescent Medicine; Visit Provider Family Medicine Adolescent Medicine
DX: M25.551 Pain in right hip (principal)
CPT/HCPCS: 73502

== ENCOUNTER 2023-12-09 09:06 | Outpatient (CLI) | payer MEDICARE, SELFPAY ==
--- NOTE | ~2023-12-09 | XR_ITS ---
XR wrist LT min 3V Ordering provider: Alfonzo Gauthier MD History: . NO INJURY RADIAL SIDE WRIST PAIN FOR 2 WEEKS . Comparison: None. FINDINGS: BONES: No acute fracture or dislocation. No definite scaphoid fracture. JOINT SPACES: Osteoarthritic changes between the trapezium and scaphoid bones. SOFT TISSUES: Normal. IMPRESSION: No acute osseous abnormality left wrist. Scaphotrapezial osteoarthritic changes. Reviewed, dictated and finalized at location A.
== END 2023-12-09 09:07 | disposition home or self-care (01) ==
PROVIDERS: PCP Family Medicine Adolescent Medicine; Visit Provider Family Medicine Adolescent Medicine
DX: M19.032 Primary osteoarthritis, left wrist (principal)
CPT/HCPCS: 73110

== ENCOUNTER 2024-02-27 13:53 | Outpatient (CLI) | payer MEDICARE, SELFPAY ==
--- NOTE | ~2024-02-27 | MR_ITS ---
Procedure: MR lumbar spine wo con Ordering provider: Alfonzo Gauthier MD History: . low back pain, bilateral lumbar radiculopathy . Comparison: None. Technique: MRI thoracic spine without contrast. FINDINGS: SPINAL CORD: Normal. The cord ends at the level of L1. VERTEBRAL BODIES: Normal height and alignment. No compression fracture. Normal marrow signal. Increas ed kyphosis at the level of T11-T12. DISK SPACES: Endplate changes at the level of L4-L5 and L5-S1. Narrowing of the disc T8-T9, T9-T10, T10-T11, T11-T12, T12-L1. L1-L2, L3-L4, L4-L5 and L5-S1. STENOSIS: Disc protrusion at the level of T8-T9, T11-T12, T12-L1, L1-L2, L2-L3, L3-L4, L4-L5 and L5-S 1. T11-T12: A right posterolateral disc protrusion with annulus tear. Slight narrowing of the right fora men. No root compression. Bilateral facet joint disease. T12-L1: A right posterolateral disc protrusion with slight narrowing of the right foramen. Bilateral facet joint disease. L1-L2: Diffuse disc bulge with bilateral narrowing of the foramina. Left nerve root compression. L2-L3: Diffuse disc bulge with bilateral narrowing of the foramina. Bilateral root compression is see n. L3-L4: Diffuse disc bulge with bilateral narrowing of the foramina with nerve root compression more o n the left side. L4-L5: Severe spinal canal stenosis. Diffuse disc bulge with central protrusion. Inferior migration i s seen in the disc. Narrowing of the foramina is noted. Thickening of the ligamenta flava is noted. B ilateral facet joint disease more on the left side L5-S1: Central disc protrusion with diffuse disc bulge on the left. Narrowing of the left foramina is seen with root compression. Bilateral facet joint disease. PARASPINOUS SOFT TISSUES: Right renal cyst. Tiny left kidney cyst. IMPRESSION: No acute osseous abnormality. Multilevel degenerative disc disease with variable degrees of spinal canal stenosis, intervertebral f oraminal narrowing and with nerve root compression. Reviewed, dictated and finalized at location A. R PILOT IMPRESSION: No acute osseous abnormality. Multilevel degenerative disc disease with variable degrees of spinal canal sten osis, intervertebral foraminal narrowing and with nerve root compression.
== END 2024-02-27 13:54 | disposition home or self-care (01) ==
LOC: GOSHIMG 13:54
PROVIDERS: PCP Family Medicine Adolescent Medicine; Visit Provider Family Medicine Adolescent Medicine
DX: M51.34 Other intervertebral disc degeneration, thoracic region (principal); M51.369 Other intervertebral disc degeneration, lumbar region without mention of lumbar back pain or lower extremity pain; M51.379 Other intervertebral disc degeneration, lumbosacral region without mention of lumbar back pain or lower extremity pain; M48.061 Spinal stenosis, lumbar region without neurogenic claudication; M48.04 Spinal stenosis, thoracic region; M48.07 Spinal stenosis, lumbosacral region
CPT/HCPCS: 72148

== ENCOUNTER → 2024-05-21 08:50 | Outpatient (CLI) | payer MEDICARE, SELFPAY ==
--- NOTE | ~2024-05-21 | XR_ITS ---
XR chest 2V 05/21/2024 09:10 Indication: Cough Procedure: 2 view chest Comparison: 11/23/2022 Findings: Right lower lobe pneumonia. Large hiatal hernia. Heart size normal. No significant effusion or pneumothorax. There are cholecystectomy clips. Impression: 1: Right lower lobe pneumonia. Reviewed, dictated and finalized at location A. Impression: 1: Right lower lobe pneumonia.
== END ==
LOC: EXPCRAD 08:54
PROVIDERS: PCP Family Medicine Adolescent Medicine; Visit Provider Family Medicine Adolescent Medicine
DX: R05.9 Cough, unspecified (principal); J18.9 Pneumonia, unspecified organism
CPT/HCPCS: 71046

== ENCOUNTER 2024-05-24 12:27 | Emergency (ER) | payer MEDICARE, SELFPAY ==
--- NOTE | 2024-05-24 12:35 | ED.URI ---
HPI - URI/Sore Throat General Chief Complaint: Upper Respiratory Infection Stated Complaint: Sore Throat Time Seen by Provider: 05/24/24 12:35 Source: patient, RN notes reviewed and old records reviewed Mode of arrival: ambulatory Limitations: no limitations History of Present Illness HPI Narrative: 79-year-old female presents to the [facility] with complaints of sore throat and generalized not feeling well. Patient states that she had back surgery on May 07 and that is when the sore throat started. Patient along May 12 was prescribed Augmentin for her sore throat by her primary care provider. States that she started taking it twice a day and then was only taking it once a day because it was giving her side effects of diarrhea. Patient had contacted her primary once again, had a chest x-ray 3 days ago on May 21. X-ray showed a right lower lobe pneumonia. Patient was then prescribed clarithromycin. Patient reports she has been taking it since Saturday evening as prescribed. States that she is not feeling better still having a sore throat. Patient also reports that she has been using her nebulizer machine 3 times a day. Related Data Home Medications ?Medication ?Instructions ?Recorded ?Confirmed ?Last Taken ?Type calcium carbonate (Calcium 600) 600 mg PO DAILY 10/26/19 02/25/24 Unknown History Allergies Allergy/AdvReac Type Severity Reaction Status Date / Time ketorolac (From Toradol) Allergy Intermediate Hives Verified 05/24/24 12:37 bacitracin Allergy Mild Rash Verified 05/24/24 12:37 cefuroxime Allergy Mild Rash Verified 05/24/24 12:37 esomeprazole Allergy Mild Unknown Verified 05/24/24 12:37 gramicidin D Allergy Mild Rash Verified 05/24/24 12:37 latex Allergy Mild Rash Verified 05/24/24 12:37 moxifloxacin Allergy Mild Rash Verified 05/24/24 12:37 neomycin Allergy Mild Rash Verified 05/24/24 12:37 polymyxin B Allergy Mild Rash Verified 05/24/24 12:37 streptomycin Allergy Mild Rash Verified 05/24/24 12:37 Sulfa (Sulfonamide Allergy Mild Rash Verified 05/24/24 12:37 Antibiotics) nitrofurantoin (From AdvReac Mild Nausea Verified 05/24/24 12:37 Macrobid) Review of Systems Review of Systems: All systems reviewed & are unremarkable except as noted in HPI and below Constitutional: Constitutional: Reports no additional constitutional complaints ENT: Reports as per HPI Cardiovascular: Cardiovascular: Reports no additional cardiovascular complaints, Denies chest pain and Denies dyspnea Respiratory: Respiratory: Reports as per HPI, Denies chest congestion, Reports cough and Denies dyspnea Musculoskeletal: Musculoskeletal: Reports no additional musculoskeletal complaints Integumentary/Breasts: Skin/Breast: Reports system reviewed and no additional complaints, except as docu PMFSH Past Medical History Medical History Concussion Screening mammogram, encounter for Hyperlipidemia Anxiety Diarrhea Myalgia Hypothyroidism, unspecified Tendinitis of left rotator cuff Irregular heart beat Diabetes Asthma Osteoporosis IBS (irritable bowel syndrome) Depression Surgical History Surgical History H/O right breast biopsy (~1992) benign History of shoulder surgery 2013, right, rotator cuff H/O hysterectomy with oophorectomy (~1993) History of cholecystectomy 2002 Family History Family History Other Asthma Diabetes mellitus Family history of arthritis Family history of chronic obstructive pulmonary disease Family history of congenital heart disease Family history of osteoarthritis Social History Social History Smoking status: Never smoker Second hand tobacco smoke exposure: No Alcohol intake: current Alcohol use details: rarely Substance use: never Substance use type: does not use Lack of Transportation: No Lack of Food: Never True Current Housing: I Have Housing Concerned About Future Housing: No Difficulty Paying Gas/Electric Bills: No Difficulty Paying for Meds: No Currently Unemployed: No Education: High School Diploma/GED Difficulty w/ Childcare or Family Care: No Living arrangements: with family Additional living arrangements comments: Occupation/Education: retired Gender identity (if verbalized by the patient): Female Sexual Orientation (if Verbalized by the Patient): Straight or Heterosexual Spiritual care concerns: No Agree to blood products: Yes Comments At the time of my signature, I reviewed and agree with the nursing past medical, surgical, social, and family history. There is no relevant family history pertinent to the patient complaint. Exam Const: General: cooperative, no acute distress, well developed, alert, ill appearing chronically and well nourished Nutritional Appearance: well nourished Orientation/consciousness: patient oriented x3 Limitations: no limitations HENMT: Head: normal to inspection Ears: hearing grossly normal bilaterally, external ears normal, TM's normal bilaterally, EAC's normal, mastoids normal and no periauricular adenopathy Mouth: Yes Normal oral and palatal mucosa present, Yes lip normal and Yes tongue normal Throat: posterior oropharynx normal, uvula midline and no uvular edema Eyes: General: appearance normal, both eyes and all related structures Alignment and Position: alignment normal Neck: Neck: normal visual inspection, full ROM, no lymphadenopathy and no meningeal signs Chest: Chest palpation & inspection: normal inspection of the chest Resp: Effort & Inspection: normal respiratory effort and able to speak in complete sentences Auscultation: no crackles, no rales, no rhonchi and wheezes expiratory wheezes and scattered wheezes Cardio: Rate: regular rate Back/Spine/Pelvis: Other: Currently in a back brace from her surgery Skin: General skin exam: normal color and no rashes or lesions noted Neuro: General: patient oriented x3, gait normal, moves all extremities and no meningeal signs Cognition (Neuro): normal cognition Speech: normal speech Gait exam (Neuro): Normal gait present Extrem: General: normal to inspection, full ROM, capillary refill normal and normal gait ( with walker) Psych: Appearance: grossly normal and well kempt Mental Status: mental status grossly normal Speech and movement: Normal speech and movement present and Clear speech present Affect: normal affect Attitude: cooperative Course Course Level of Care: Express Care Visit Vital Signs Vital signs: Vital Signs Temperature 97.9 F 05/24/24 12:36 Pulse Rate 82 05/24/24 12:36 Respiratory Rate 19 05/24/24 12:36 Blood Pressure 124/57 L 05/24/24 12:36 Pulse Oximetry 100 05/24/24 12:36 Oxygen Delivery Room Air 05/24/24 12:36 Temperature 97.9 F 05/24/24 12:36 Pulse Rate 82 05/24/24 12:36 Respiratory Rate 19 05/24/24 12:36 Blood Pressure 124/57 L 05/24/24 12:36 Pulse Oximetry 100 05/24/24 12:36 Oxygen Delivery Room Air 05/24/24 12:36 Reviewed MDM - URI/Sore Throat MDM Narrative Medical decision making narrative: patient is sitting in exam room. Presents with . Vitals are stable. Patient presents with approximately 2 week history of a sore throat. Patient strep is negative. Patient did have surgery just prior to it starting, was intubated. Patient has also been on 2 antibiotics, Augmentin and clarithromycin recently also diagnosed with pneumonia, currently being treated. discussed with patient and her that the sore throat could be due to the intubation of when she had surgery. Also could be due to the coughing from the pneumonia. There is no signs of strep. Does have some mild drainage. Patient is currently covered with an antibiotic. Patient appropriate for outpatient treatment, discussed signs and symptoms to proceed to the emergency room which patient and both verbalized understand Discharge instructions reviewed with patient, as well as provided in writing per nursing staff. The instructions also include specific and strict return/GO TO THE ER as well as f/u information. All questions have been answered, and the patient deny any further questions with discharge and discharge plan. Some parts of this dictation were generated by voice recognition software and may contain typographical and/or grammatical inaccuracies. Differential Diagnosis Differential diagnosis: Likely upper respiratory infection, otitis media, sinusitis, viral infection, bronchitis and pharyngitis Lab Data Labs: Lab Results 05/24/24 Range/Units 12:45 POC Grp A Strep Screen Negative (Negative) Reviewed Critical Care Time Critical Care Time Critical Care Time: No Discharge Plan Discharge Clinical Impression: Pharyngitis, History of pneumonia, Expiratory wheezing Patient Disposition: Home, Self-Care Condition: Stable Instructions: Antibiotic Form, Pharyngitis (ED), Pneumonia (ED) Additional Instructions: follow-up with primary care provider continue using breathing treatments 4 times a day as prescribed continue taking antibiotic as prescribed for new or worsening symptoms go directly to the emergency room Patient Language: Sinhala Prescriptions: No Action calcium carbonate [Calcium 600] 600 mg calcium (1,500 mg) tablet 600 mg PO DAILY mirtazapine 7.5 mg tablet 7.5 mg PO QHS Qty: 90 0RF albuterol sulfate [ProAir HFA] 90 mcg/actuation HFA aerosol inhaler 2 inh inhalation QID PRN (Reason: shortness of breath or wheezing) Qty: 8.5 3RF estradiol 0.01 % (0.1 mg/gram) cream 1 g vaginal 3XW Qty: 42.5 2RF diclofenac sodium 75 mg tablet,delayed release (DR/EC) 75 mg PO BID Qty: 60 5RF Prolia 60 mg/mL syringe 60 mg subcut [id number] Qty: 1 1RF albuterol sulfate 2.5 mg /3 mL (0.083 %) solution for nebulization 2.5 mg inhalation Q4-6H PRN (Reason: shortness of breath or wheezing) Qty: 90 2RF propranolol 40 mg tablet See Rx Instructions .ROUTE .COMPLEX Qty: 270 3RF Dose Instruction: TAKE 1 AND 1/2 TABLETS BY MOUTH EVERY 12 HOURS Rx Instructions: TAKE 1 AND 1/2 TABLETS BY MOUTH EVERY 12 HOURS levothyroxine 100 mcg tablet See Rx Instructions .ROUTE .COMPLEX Qty: 90 3RF Dose Instruction: TAKE 1 TABLET BY MOUTH DAILY Rx Instructions: TAKE 1 TABLET BY MOUTH DAILY gemfibrozil [Lopid] 600 mg tablet 600 mg PO BID Qty: 180 2RF zqpovlremb-svbrxyb-tyzhcumr 50-325-40 mg capsule 1 cap PO Q6H PRN (Reason: Headache) Qty: 100 2RF lidocaine 5 % adhesive patch,medicated 1 patch topical DAILY Qty: 30 2RF Rx Instructions: leave on most painful area for up to 12 hrs dexlansoprazole [Dexilant] 60 mg capsule,biphase delayed releas 60 mg PO DAILY Qty: 30 5RF duloxetine 30 mg capsule,delayed release(DR/EC) 90 mg PO DAILY Qty: 90 5RF ketoconazole 2 % cream 1 applic topical BID PRN (Reason: Rash) Qty: 30 0RF celecoxib 200 mg capsule 200 mg PO BID Qty: 60 2RF lorazepam 1 mg tablet 2 mg PO ONCE Qty: 2 0RF Rx Instructions: Before MRI ondansetron HCl 4 mg tablet 4 mg PO Q6H PRN (Reason: nausea and vomiting) Qty: 20 1RF diphenoxylate-atropine [Lomotil] 2.5-0.025 mg tablet 1 tablet PO QID PRN (Reason: diarrhea) Qty: 40 1RF lactulose 10 gram/15 mL solution 30 ml PO DAILY Qty: 946 2RF fluconazole 150 mg tablet 150 mg PO ONCE Qty: 2 0RF Rx Instructions: take one tablet. If symptoms persist after 72 hours, repeat dose. dicyclomine 20 mg tablet 20 mg PO TID PRN (Reason: abdominal pain) Qty: 30 3RF prednisone 10 mg tablet See Rx Instructions PO DIRECTED Qty: 40 0RF Rx Instructions: Take 4 daily x4, 3 daily x4, 2 daily x4, 1 daily x4 orally as directed; see taper instructions furosemide 20 mg tablet 20 mg PO QAM Qty: 20 0RF oxycodone 20 mg tablet 20 mg PO Q6H PRN (Reason: pain) Qty: 120 0RF fluticasone propion-salmeterol 232-14 mcg/actuation aerosol powdr breath activated 1 inh inhalation BID Qty: 1 5RF Follow-up/Referrals: Alfonzo Gauthier MD [Primary Care Provider] - 3 Days ([facility] care follow up ) Time of Disposition: 13:05
[2024-05-24 12:36] VITALS: BP 124/57; PULSE 82; RESP 19; TEMP 36.6; O2SAT 100
[2024-05-24 13:06] LABS: EDSTREPNEGPOS1 Negative (Negative)
== END 2024-05-24 13:10 | disposition home or self-care (01) ==
PROVIDERS: Emergency Provider Nurse Practitioner; PCP Family Medicine Adolescent Medicine
DX: J02.9 Acute pharyngitis, unspecified (principal); J18.9 Pneumonia, unspecified organism; R06.2 Wheezing; E78.5 Hyperlipidemia, unspecified; E03.9 Hypothyroidism, unspecified; E11.9 Type 2 diabetes mellitus without complications; J45.909 Unspecified asthma, uncomplicated; M81.0 Age-related osteoporosis without current pathological fracture; F41.9 Anxiety disorder, unspecified
CPT/HCPCS: 87081; 87880; 99212; G0463

== ENCOUNTER 2024-08-31 13:24 | Outpatient (CLI) | payer MEDICARE, SELFPAY ==
--- NOTE | ~2024-08-31 | DEXA_ITS ---
Bone Density Report Name: AKIRA DAVALOS Age: 79 Sex: Female Ethnicity: White Date of : 1945 Indication: osteopenia; monitoring treatment; height loss; prior fracture; asthma or emphysema; hysterectomy; Referring Provider: ADA COLBY Study: Bone densitometry was performed. Exam Date: August 31, 2024 Accession number: [id number] Bone Density: Region BMD T-score Z-score Classification AP Spine(L2, L3, L4) 0.973 -1.0 1.9 Normal Femoral Neck (Left) 0.611 -2.1 0.2 Osteopenia Total Hip (Left) 0.802 -1.1 1.0 Osteopenia Femoral Neck (Right) 0.623 -2.0 0.3 Osteopenia Total Hip (Right) 0.869 -0.6 1.5 Normal Total Hip Mean 0.836 -0.9 1.3 Normal World Health Organization criteria for BMD impression classify patients as: Normal (T-score at or above -1.0), Osteopenia (T-score between -1.0 and -2.5), or Osteoporosis (T-score at or below -2.5). 10-year Fracture Risk: FRAX not reported because: Prior hip or vertebral fracture Treated for osteoporosis Previous Exams: -- Region Exam Age BMD T-score BMD Change BMD Change Date g/cm2 vs Baseline vs Previous -- AP Spine (L2-L4) 08/31/2024 79 0.973 -1.0 4.1%* -0.8% 01/04/2022 76 0.980 -0.9 4.9%* 5.6%* 08/25/2010 65 0.928 -1.4 -0.7% -0.7% 01/23/2008 62 0.935 -1.3 Total Hip(Left) 08/31/2024 79 0.802 -1.1 -16.0%* -0.9% 01/04/2022 76 0.809 -1.1 -15.3%* -8.6%* 09/21/2016 71 0.886 -0.5 -7.3%* 1.9% 06/18/2014 69 0.869 -0.6 -9.1%* 2.5% 08/25/2010 65 0.848 -0.8 -11.2%* -11.2%* 01/23/2008 62 0.955 0.1 Total Hip(Right) 08/31/2024 79 0.869 -0.6 -10.4%* -1.4% 01/04/2022 76 0.882 -0.5 -9.1%* -2.1% 09/21/2016 71 0.901 -0.3 -7.1%* 3.4%* 06/18/2014 69 0.871 -0.6 -10.2%* 3.5%* 08/25/2010 65 0.841 -0.8 -13.3%* -13.3%* 01/23/2008 62 0.970 0.2 -- *Denotes significance at 95% confidence level, LSC for AP Spine = 0.022 g/cm2, LSC for Total Hip = 0.027 g/cm2 Rate of change results reflect vertebral levels common to all scans Clinical Information Provided by Patient: Have had a previous hip or vertebral fracture Has had a low trauma fracture Is being treated for osteoporosis Has used the following medications: Prolia (i.e. denosumab), Vitamin D, Calcium Has the following medical conditions: Asthma or Emphysema, Hysterectomy Patient maximum height was 60 Menopause Age: 46 No regular weight bearing exercise Onset of menses at age 10 Number of children 2 Missed period for more than 6 months in a row Impression: The patient has low bone mass, based on the Left Femoral Neck T-score. The patient has risk factors, including: previous fracture. No significant bone loss was observed. Discussion: PATIENT UNDER TREATMENT WITH NO SIGNIFICANT BMD LOSS SINCE LAST EXAM. In an untreated patient, BMD typically declines with age. A lack of decline or gain is usually a sign that treatment is efficacious and fracture risk is reduced. It is important to ask patients whether they are taking their medications and to encourage continued and appropriate compliance with their osteoporosis therapies to reduce fracture risk. It is also important to review their risk factors and encourage appropriate calcium and vitamin D intakes, exercise, fall prevention and other lifestyle measures. Follow-Up: Consider a repeat BMD and Vertebral Fracture Assessment (VFA) exam in 2 years or sooner if medically necessary, to reassess this patient's status. Reported by: AGUSTÍN on 08/31/2024 1:45:00 PM. Reviewed, dictated and finalized at location A.
== END 2024-08-31 13:25 | disposition home or self-care (01) ==
LOC: MICIMG 13:26
PROVIDERS: PCP Family Medicine Adolescent Medicine; Visit Provider Family Medicine Adolescent Medicine
DX: M85.852 Other specified disorders of bone density and structure, left thigh (principal); M85.851 Other specified disorders of bone density and structure, right thigh; Z78.0 Asymptomatic menopausal state
CPT/HCPCS: 77080

== ENCOUNTER 2024-11-11 09:45 | Emergency (ER) | payer MEDICARE, SELFPAY ==
[2024-11-11 09:57] VITALS: BP 125/58; PULSE 61; RESP 18; TEMP 36.6; O2SAT 100
--- NOTE | 2024-11-11 10:31 | ED.NECK ---
HPI - Neck Pain/Injury General Chief Complaint: Neck Pain/Injury Stated Complaint: Neck/Back Pain Time Seen by Provider: 11/11/24 09:46 Source: patient Mode of arrival: ambulatory Limitations: no limitations History of Present Illness HPI Narrative: Patient is a 79-year-old female who presents with left neck pain that is extending into left shoulder. States it has worsened over the last 2 weeks. Patient had MRI done last week and got results yesterday. Patient has a a nerve instruction at [facility] tomorrow and is concerned that she has to lay face down with head turned for an extended amount of time may cause more pain. Patient is also concerned about veins in her neck appearing more prominent thinking that this signs of stroke. Patient denies any vision changes, numbness, tingling or weakness outside of her normal. Patient had low back surgery earlier this year and has residual numbness in feet. Patient has taken her home oxycodone and muscle relaxer along with ibuprofen. Related Data Home Medications ?Medication ?Instructions ?Recorded ?Confirmed ?Last Taken ?Type calcium carbonate (Calcium 600) 600 mg PO DAILY 10/26/19 11/03/24 Unknown History Allergies Allergy/AdvReac Type Severity Reaction Status Date / Time ketorolac (From Toradol) Allergy Intermediate Hives Verified 11/11/24 10:35 bacitracin Allergy Mild Rash Verified 11/11/24 10:35 cefuroxime Allergy Mild Rash Verified 11/11/24 10:35 esomeprazole Allergy Mild Unknown Verified 11/11/24 10:35 gramicidin D Allergy Mild Rash Verified 11/11/24 10:35 latex Allergy Mild Rash Verified 11/11/24 10:35 moxifloxacin Allergy Mild Rash Verified 11/11/24 10:35 neomycin Allergy Mild Rash Verified 11/11/24 10:35 polymyxin B Allergy Mild Rash Verified 11/11/24 10:35 streptomycin Allergy Mild Rash Verified 11/11/24 10:35 Sulfa (Sulfonamide Allergy Mild Rash Verified 11/11/24 10:35 Antibiotics) nitrofurantoin (From AdvReac Mild Nausea Verified 11/11/24 10:35 Macrobid) Review of Systems Review of Systems: All systems reviewed & are unremarkable except as noted in HPI and below Constitutional: Constitutional: Denies body ache(s), Denies chills, Denies fatigue, Denies fever(s), Denies headache(s), Denies malaise and Denies weakness Eyes: Eyes: Denies blurry vision, Denies irritation and Denies loss of vision ENT: Denies otalgia, Denies headache(s), Denies nasal discharge, Denies sinus pain and Denies sore throat Cardiovascular: Cardiovascular: Denies chest pain, Denies irregular heart rhythm and Denies dyspnea Respiratory: Respiratory: Denies dyspnea Gastrointestinal: Gastrointestinal: Denies abdominal pain, Denies melena, Denies hematochezia, Denies diarrhea, Denies nausea and Denies vomiting Musculoskeletal: Musculoskeletal: Denies back pain, Denies myalgias, Denies arthralgias and Reports neck pain Integumentary/Breasts: Skin/Breast: Denies pruritus and Denies rash Neurologic: Denies headache(s), Denies loss of vision and Denies weakness Psychiatric: Psychiatric: Reports no additional psychiatric complaints Endocrine: Endocrine: Denies fatigue PMFSH Past Medical History Medical History Screening mammogram, encounter for BMI 25.0-25.9,adult Concussion Hyperlipidemia Anxiety Diarrhea Myalgia Hypothyroidism, unspecified Tendinitis of left rotator cuff Irregular heart beat Diabetes Asthma Osteoporosis IBS (irritable bowel syndrome) Depression Surgical History Surgical History History of lumbar laminectomy for spinal cord decompression (04/2024) L3-L5 H/O right breast biopsy (~1992) benign History of shoulder surgery 2013, right, rotator cuff H/O hysterectomy with oophorectomy (~1993) History of cholecystectomy 2002 Family History Family History Other Asthma Diabetes mellitus Family history of arthritis Family history of chronic obstructive pulmonary disease Family history of congenital heart disease Family history of osteoarthritis Social History Social History Smoking status: Never smoker Second hand tobacco smoke exposure: Yes Alcohol intake: current Alcohol use details: rarely Substance use: never Substance use type: does not use Do You Feel Safe in your Home?: Yes Lack of Transportation: No Lack of Food: Never True Current Housing: Decline to Answer Concerned About Future Housing: Decline to Answer Difficulty Paying Gas/Electric Bills: Decline to Answer Difficulty Paying for Meds: Decline to Answer Currently Unemployed: Decline to Answer Education: Decline to Answer Difficulty w/ Childcare or Family Care: Decline to Answer Living arrangements: with family Additional living arrangements comments: Occupation/Education: retired 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 There is no relevant family history pertinent to the presenting complaint. Exam Const: General: cooperative, healthy appearing, comfortable, no acute distress and well nourished Nutritional Appearance: well nourished Orientation/consciousness: patient oriented x3 Limitations: no limitations HENMT: Head: normal to inspection, normocephalic and atraumatic Ears: hearing grossly normal bilaterally and external ears normal Face/Nose/Sinus: Normal external nose present, normal facial exam and face symmetric Face and sinus: normal facial exam and face symmetric Mouth: Yes lip normal Eyes: General: appearance normal, both eyes and all related structures Alignment and Position: alignment normal and position normal Periorbital: periorbital findings normal Eyelids: eyelids normal Pupils: Equal, round and reactive pupils present EOM: EOMs intact bilaterally Neck: Neck: normal visual inspection, full ROM and supple Chest: Chest palpation & inspection: normal inspection of the chest Resp: Effort & Inspection: normal respiratory effort and able to speak in complete sentences Auscultation: clear to auscultation bilaterally Cardio: Rate: regular rate Rhythm: regular rhythm Heart sounds: S1 normal heart sound present and S2 normal heart sound present GI: Inspection: normal to inspection Back/Spine/Pelvis: Cervical Spine: cervical ROM normal (Patient's baseline), cervical muscular tenderness and No Cervical spine tenderness Skin: General skin exam: normal color and no rashes or lesions noted Neuro: General: patient oriented x3 and moves all extremities Cranial nerves: Yes Equal, round and reactive pupils present Cognition (Neuro): normal cognition Speech: normal speech Gait exam (Neuro): Normal gait present Motor exam (neuro): 5/5 motor strength present throughout, Normal motor muscle tone present throughout and Motor abnormalities not present Sensory Exam: normal sensation Extrem: General: normal to inspection, full ROM and no edema Psych: Appearance: grossly normal and well kempt Mental Status: mental status grossly normal Speech and movement: Normal speech and movement present Affect: normal affect Attitude: cooperative Thought process: Normal thought process present Course Course Emergency Course: Patient is aware of diagnosis, understands and agrees to treatment plan. Anticipatory guidance given. Patient agrees to follow-up as directed and is aware of reasons to seek care at the emergency department. Portions of this record may have been created with voice recognition software Level of Care: Express Care Visit Vital Signs Vital signs: Vital Signs Temperature 36.6 C 11/11/24 09:57 Pulse Rate 61 11/11/24 09:57 Respiratory Rate 18 11/11/24 09:57 Blood Pressure 125/58 L 11/11/24 09:57 Pulse Oximetry 100 11/11/24 09:57 Oxygen Delivery Room Air 11/11/24 09:57 Temperature 36.6 C 11/11/24 09:57 Pulse Rate 61 11/11/24 09:57 Respiratory Rate 18 11/11/24 09:57 Blood Pressure 125/58 L 11/11/24 09:57 Pulse Oximetry 100 11/11/24 09:57 Oxygen Delivery Room Air 11/11/24 09:57 Reviewed MDM - Neck Pain/Injury MDM Narrative Medical decision making narrative: Discussed the need for transfer if patient would like full workup for stroke. Patient has no signs or symptoms of stroke at this time as she is neuro intact. Patient declines transfer. Patient will go to her scheduled appointment tomorrow along with her follow-up appointment on Saturday with her spinal surgeon who ordered the neck MRI, MRI shows multiple bulging discs in neck. Patient will continue to take home medications as prescribed. Pt well hydrated appearing, in no respiratory distress, hemodynamically stable. The patient is stable at time of discharge the clinical impression was discussed and the patient was given the opportunity to ask questions, which were addressed as completely as possible given the information available at present. Anticipatory guidance and return to care precautions were discussed and the importance of primary care follow-up was stressed and encouraged. The patient voiced understanding of the plan, indications to return, and the need for follow-up. Exam findings show no acute concerns or changes Patient is appropriate for outpatient treatment and follow-up. Differential Diagnosis Differential diagnosis: Likely disc disorder of cervical region, cervical radiculopathy, cervical spondylosis and strain of neck muscle Medical Records Attestation: I reviewed the patient's medical records. Discharge Plan Discharge Clinical Impression: Neck and shoulder pain Patient Disposition: Home Condition: Stable Instructions: Acute Neck Pain (ED) Additional Instructions: Continue to take home pain medication and muscle relaxers Avoid activities that cause pain until the pain subsides. Ice to the area 20-30 minutes 4-6 times a day Tylenol for lesser pain Follow up with your spinal surgeon on Saturday as scheduled appointment If the condition worsens with numbness, tingling, decrease sensation with weakness seek treatment in the emergency room immediately. Patient Language: Turkmen Prescriptions: No Action calcium carbonate [Calcium 600] 600 mg calcium (1,500 mg) tablet 600 mg PO DAILY diclofenac sodium 75 mg tablet,delayed release (DR/EC) 75 mg PO BID Qty: 60 5RF bupropion HCl [Wellbutrin XL] 150 mg tablet extended release 24 hr 150 mg PO QAM Qty: 30 3RF Linzess 72 mcg capsule 72 mcg PO DAILY Qty: 30 3RF clotrimazole 1 % cream 1 appful vaginal QHS Qty: 45 0RF Rx Instructions: apply to chriss area where irritated Prolia 60 mg/mL syringe 60 mg subcut [id number] Qty: 1 1RF ondansetron HCl 4 mg tablet 4 mg PO Q6H PRN (Reason: nausea and vomiting) Qty: 20 1RF diphenoxylate-atropine [Lomotil] 2.5-0.025 mg tablet 1 tablet PO QID PRN (Reason: diarrhea) Qty: 40 1RF dicyclomine 20 mg tablet 20 mg PO TID PRN (Reason: abdominal pain) Qty: 30 3RF albuterol sulfate 2.5 mg /3 mL (0.083 %) solution for nebulization 2.5 mg inhalation Q4-6H PRN (Reason: shortness of breath or wheezing) Qty: 90 5RF albuterol sulfate [ProAir HFA] 90 mcg/actuation HFA aerosol inhaler 2 inh inhalation QID PRN (Reason: shortness of breath or wheezing) Qty: 8.5 3RF xtrwdbetrd-nspxbla-ktxpkuqo 50-325-40 mg capsule 1 cap PO Q6H PRN (Reason: Headache) Qty: 100 2RF duloxetine 30 mg capsule,delayed release(DR/EC) 90 mg PO DAILY Qty: 90 5RF gemfibrozil [Lopid] 600 mg tablet 600 mg PO BID Qty: 180 2RF propranolol 40 mg tablet See Rx Instructions .ROUTE .COMPLEX Qty: 270 3RF Dose Instruction: TAKE 1 AND 1/2 TABLETS BY MOUTH EVERY 12 HOURS Rx Instructions: TAKE 1 AND 1/2 TABLETS BY MOUTH EVERY 12 HOURS levothyroxine 100 mcg tablet See Rx Instructions .ROUTE .COMPLEX Qty: 90 3RF Dose Instruction: TAKE 1 TABLET BY MOUTH DAILY Rx Instructions: TAKE 1 TABLET BY MOUTH DAILY dexlansoprazole 60 mg capsule,biphase delayed releas See Rx Instructions .ROUTE .COMPLEX Qty: 90 2RF Dose Instruction: TAKE 1 CAPSULE BY MOUTH DAILY Rx Instructions: TAKE 1 CAPSULE BY MOUTH DAILY ketoconazole 2 % cream See Rx Instructions .ROUTE .COMPLEX Qty: 30 0RF Dose Instruction: APPLY TOPICALLY TO THE AFFECTED AREA TWICE DAILY NEEDED FOR RASH Rx Instructions: APPLY TOPICALLY TO THE AFFECTED AREA TWICE DAILY NEEDED FOR RASH nystatin 100,000 unit/gram powder 1 applic topical BID Qty: 60 1RF estradiol 0.01 % (0.1 mg/gram) cream 1 g vaginal 3XW Qty: 42.5 2RF oxycodone 20 mg tablet 20 mg PO Q6H PRN (Reason: pain, severe) Qty: 120 0RF lidocaine 5 % adhesive patch,medicated 1 patch topical DAILY Qty: 30 2RF Rx Instructions: leave on most painful area for up to 12 hrs fluticasone propion-salmeterol 500-50 mcg/dose blister with device See Rx Instructions .ROUTE .COMPLEX Qty: 60 3RF Dose Instruction: INHALE 1 PUFF BY MOUTH EVERY 12 HOURS Rx Instructions: INHALE 1 PUFF BY MOUTH EVERY 12 HOURS Follow-up/Referrals: Alfonzo Gauthier MD [Primary Care Provider, Family Practice] - 3 Days Time of Disposition: 10:33
== END 2024-11-11 10:45 | disposition home or self-care (01) ==
PROVIDERS: Emergency Provider Nurse Practitioner Family; PCP Family Medicine Adolescent Medicine
DX: M54.2 Cervicalgia (principal); M25.512 Pain in left shoulder; E78.5 Hyperlipidemia, unspecified; E03.9 Hypothyroidism, unspecified; E11.9 Type 2 diabetes mellitus without complications; J45.909 Unspecified asthma, uncomplicated; F41.9 Anxiety disorder, unspecified; F32.A Depression, unspecified
CPT/HCPCS: 99212; G0463

== ENCOUNTER 2024-11-24 07:11 | Outpatient (CLI) | payer MEDICARE, SELFPAY ==
--- OUTSIDE RECORDS SUMMARY | 2013-12-09 03:15 | XMS_ITS | Continuity of Care Document ---
Author Organization [facility] Address [address] [place] [address] Phone Care Team Providers Care Private Branch Exchange Repairer Name Role Phone Kris Brown MD Unavailable Unavailable Allergies, Adverse Reactions, Alerts Substance Reaction Status Criticality polymyxin B Active No Information NEOMYCIN SULFATE Active No Informat ion BACITRACIN ZINC Active No Informati on bacitracin Active No Information ESOMEPRAZOLE MAGNESIUM Active No In formation streptomycin Active No Information Sulfa (Sulfonamide Antibiotics) Active No Information latex Active No Information Medications Medication Instructions Dosage Effective Dates (start - stop) Status Comments Percocet 5 mg-325 mg tablet take 1 - 2 Tablet by oral route every 4 - 6 hours as needed 1-2 Tablet - Active INDERAL LA (unknown strength) Not Available - Active ADVAIR HFA (unknown strength) Not Available - Active CYMBALTA (unknown strength) Not Available - Active ALBUTEROL (unknown strength) Not Available - Active PERCOCET (unknown strength) Not Available - Active LOPID (unknown strength) Not Available - Active Procedures Procedure Date OFFICE/OUTPATIENT VISIT NEW OFFICE/OUTPATIENT VISIT NEW Advance Directives Directive Yes / No Effective Date File Name No Information Encounters Encounter Description Practice Location Reason(s) For Visit Diagnoses Date Provider Providers Copied on Encounter [facility], [address], [place], [address], [place] [phone] [facility] No Information 4 Stepahnie Ponce. [address], [place], [place], [id number] . tel: [phone] OFFICE/OUTPA TIENT VISIT [facility], [address], [place], [address], [place] [phone] [facility] [place] Shoulder impingement 4 Stephanie Ponce. [address], [place], [place], [id number] . tel: [phone] OFFICE/OUTPA TIENT VISIT [facility], [address], [place], [address], [place] tel:[phone] [facility] [place] hands (chief complaint) Carpal tunnel syndromeDegener ative arthritis of finger 4 Alphonse Moore. [address], [place], [place], [id number] . tel: [phone] Family History Family Member Type Diagnosis Age At Onset No Information Payers Payer name Insurance type Covered democrat ID Authoriza tion(s) No Information Social History Type Description Quantity Date Captured Comments Sex Female Smoking Status No Information Chief Complaint And Reason For Visit No Information Reason For Referral Reason For Referral No Information Plan Of Treatment Date Type Action Status Referral Ordered: RADEX DENI COMPL MINIMUM 2 VIEWS RT ordered Referral Ordered: RADEX HAND MINIMUM 3 VIEWS Bilateral ordered Referral Ordered: MUSC TEST DONE W/N TEST COMP (EMG/NCS) Bilateral upper extremity Appointment date/timeframe: 08/13/2013 ordered History Of Present Illness Encounter Date Complaint History Of Prese nt Illness No Information Functional Status Date Functional Assessmen t No Information Instructions Date Instruction Additional Infor mation Immobilize as directed. Related to Shoulder impingement Apply ice as tolerated. Related to Shoulder impingement Elevate extremity above heart. R elated to Shoulder impingement Physical activity counseling Rel ated to Dietary Surveillance Counseling Assessments Type Assessment Date No Information Patient Care Teams Name Effective Dates (start - stop) Status Members No Information
--- NOTE | ~2024-11-24 | XR_ITS ---
Examination: XR chest 2V Clinical History: R00.2 - Palpitations, ASTHMA, IRREGULAR HEART BEAT Comparison: 05/21/2024 Technique: PA and Lateral Findings: Cardiomediastinal silhouette normal size and configuration. Right basilar chronic scarring. Mild left basilar atelectasis and/or scarring. A few calcified granulomata. No acute bony abnormality. Moderate hiatal hernia. IMPRESSION: 1. No acute cardiopulmonary findings. Reviewed, dictated and finalized at location R.
--- OUTSIDE RECORDS SUMMARY | 2024-11-24 07:17 | XMS_ITS | Encounter Summary ---
Author Organization [facility] Healthcare Address [address] [place] [address] Care Team Providers Care Business Communications Instructor Name Role Phone Alfonzo Gauthier MD Primary Care Prov ider Encounter Details Date Type Department Care Team (Late st Contact Info) Description 10/28/2024 Telephone [facility] [place] [facility] [address] [place] [address] Jovi Adams MD [address] [place] [address] Social History Tobacco Use Types Packs/Day Years Used Date Smoking Tobacco: Former Cigarettes 1 - 1961 Passive Smoke Exposure: Past Smokeless Tobacco: Never Comments:couple cigarettes h ere and there Alcohol Use Standard Drinks/Week Comments Not Currently 0 (1 standard drink = 0.6 oz pur e alcohol) Hunger Vital Sign Answer Date Recorded Within the past 12 months, y ou worried that your food would run out before you got the money to buy more. Never true 08/04/19 25 Within the past 12 months, t he food you bought just didn't last and you didn't have money to get more. Never true 08/03/2024 AUDIT-C Answer Date Recorded Q1: How often do you have a drink containing alcohol? Never 10/19/2024 Q2: How many drinks containi ng alcohol do you have on a typical day when you are drinking? Patient does not drink Q3: How often do you have si x or more drinks on one occasion? Never 10/19/2024 Personal Safety Answer Date Recorded Have you ever been in or are you currently in a harmful physical or emotional relationship or is someone making you feel afraid or unsafe? 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 Author CCM Chronic Pain Care Plan Chronic Care Management No change(10/19 10:38 AM CDT) No Margareth Baum RN Note: Problem: Chronic Pain Goals: 1. Minimize further functional decline 2. Maximize quality of life 3. Control pain Strategies: - Activity/exercise program recommendation - Conservative stepwise pain medicine strategy with multi-disciplinary approach - Recommend healthy lifestyle strategies and compensatory methods as needed documented as of this encounter Visit Diagnoses Not on filedocumented in this encounter Care Teams Business Communications Instructor Relationship Specialty Start Date End Date Alfonzo Gauthier MD PCP - General Family Medicine 10/12/19 documented as of this encounter
--- OUTSIDE RECORDS SUMMARY | 2024-11-24 07:17 | XMS_ITS | Clinical Summary ---
Author Organization [facility] Address [address] [place] [address] Care Team Providers Care Hot Box Spotter Name Role Phone Alfonzo Gauthier MD Primary Care Provider + Source Comments [facility],non-[facility] Affiliates and Associated Physician Practices is amultiple site organization consisting of ambulatory clinics and hospital sitesin [place], [place], [place] and [place]. This disclosure is being madepursuant to the Care Everywhere program and may not contain all information available regarding this patient. Last updated 17.[facility] [employer] 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 Gender Identity Not on file Sexual Orientation Not on file Plan of Treatment Health Maintenance Due Date Last Done Comments BONE DENSITY TESTING 1943 DTAP/TDAP/TD VACCINES (1 - Tdap) 1962 PNEUMOCOCCAL VACCINE 50+ (1 of 1 - PCV) 1993 ZOSTER VACCINE (1 of 2) 1993 Respiratory Syncytial Virus (RSV) Vaccine Pt: or over 60 yrs (1 - 1-dose 75+ series) 2018 DEPRESSION SCREENING 02/26/2024 COVID-19 VACCINE ( - 2023-2 5 season) 2024 INFLUENZA VACCINE (#1) 2024 HEPATITIS B VACCINE Aged Out No longe r eligible based on patient's age to complete this topic HIB VACCINE Aged Out No longer eligi ble based on patient's age to complete this topic HPV VACCINE Aged Out No longer eligi ble based on patient's age to complete this topic MENINGOCOCCAL (Group B) VACC INE SHARED DECISION-MAKING Aged Out No longer eligibl e based on patient's age to complete this topic MENINGOCOCCAL GROUPS A/C/Y/W VACCINE Aged Out No longer eligible b ased on patient's age to complete this topic Care Teams Hot Box Spotter Relationship Specialty Start Date End Date Alfonzo Gauthier MD [address] [address] PCP - General 06/18/11
--- OUTSIDE RECORDS SUMMARY | 2024-11-24 07:17 | XMS_ITS | Clinical Summary ---
Author Organization [facility] Address [address] [place] [id number] Care Team Providers Care Wing Commander Name Role Phone Alfonzo Gauthier MD Primary Care Provider [phone] Social History Tobacco Use Types Packs/Day Years Used Date Smoking Tobacco: Never Assessed Comments Unknown Sex and Gender Information Value Date Recorded Sex Assigned at Not on file Legal Sex Female 9:24 PM CDT Gender Identity Not on file Sexual Orientation Not on file Plan of Treatment Health Maintenance Due Date Last Done Comments Zoster Vaccines (1 of 2) 1993 Annual Medicare Wellness Visit 2008 Dexa Scan (General) 2008 Pneumococcal Vaccine: 50+ Years (2 of 2 - PPSV23) 02/25/2016 02/24/2015 RSV Immunization or 60+ Years (1 - 1-dose 75+ series) 2018 COVID-19 Vaccine ( season) 2024 12/06/2021, 06/16/2021, 12/19/2020, Additional history exists DTaP, Tdap and Td Vaccines (2 - Td or Tdap) 09/09/2025 09/10/2015 Meningococcal B Vaccine Aged Out No l onger eligible based on patient's age to complete this topic Meningococcal Vaccine Aged Out No augustin araceli eligible based on patient's age to complete this topic RSV Immunizations Under 20 Months Aged Out No longer eligible based on patient's age to complete this topic Insurance MEDICARE [facility] Care Teams Wing Commander Relationship Specialty Start Date End Date Alfonzo Gauthier MD [address] [place] [id number] PCP - General FAMILY PRACTICE 05/26/21
--- OUTSIDE RECORDS SUMMARY | 2024-11-24 07:17 | XMS_ITS | Clinical Summary ---
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 Name Role Phone Alfonzo Gauthier MD Primary Care Prov ider Allergies Active Allergy Reactions Criticality Noted Date Comments Bacitracin Rash Medium 05/24/2024 Gramicidin D Rash Medium 05/24/2024 Latex Hives Medium Moxifloxacin Unknown 11/16/2021 Neomycin Rash Medium 11/11/2024 Kaaihuev-Fahtuuhwbx-Fvitgkxkf Rash Medium 2020 Esomeprazole Hives Medium 10/19/2019 Nitrofurantoin Nausea only Low 05/24/2024 Polymyxin B Rash Medium 05/24/2024 Streptomycin Sulfate Hives Medium 10/16/2019 Sulfa (Sulfonamide Antibiotics) Hives Medium Sulfamethoxazole-Trimethoprim Unknown 2021 Ketorolac Hives Medium 01/18/2020 Medications albuterol HFA (PROVENTIL HFA,VENTOLIN HFA,PROAIR HFA) 90 mcg/actuation inhalerIndicatio ns:Acute Asthma Attack Inhale 1 puff as needed for wheezing or shortness of breath 09/24/19 20 Active butalbital-aspir in-caffeine (FIORINAL) 50-325-40 mg capsuleIndicatio ns:Migraine Take 1 capsule by mouth as needed for headaches or migraine 10/03/19 20 Active Dexilant 60 mg capsuleIndicatio ns:acid reflux Take 1 capsule (60 mg total) by mouth every morning 09/25/19 20 Active diphenoxylate-at ropine (LOMOTIL) 2.5-0.025 mg per tablet Take 1 tablet by mouth as needed for diarrhea 10/16/19 20 Active gemfibroziL (LOPID) 600 mg tabletIndication s:hypertriglycer idemia Take 1 tablet (600 mg total) by mouth 2 (two) times a day 08/28/19 20 Active levothyroxine (SYNTHROID) 100 mcg tabletIndication s:hypothyroidism Take 1 tablet (100 mcg total) 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 10/05/19 20 Active denosumab (PROLIA) 60 mg/mL syringeIndicatio ns:postmenopausa l osteoporosis and high fracture risk Inject 1 mL (60 mg total) under the skin every 6 (six) months Last dose was in the fall Active clobetasoL (TEMOVATE) 0.05 % external solutionIndicati ons:Dermatosis of the Scalp Apply 1 Application topically as needed Active estradioL (ESTRACE) 0.01 % (0.1 mg/gram) vaginal creamIndications :Atrophy of Vulva Insert 2 g into the vagina nightly Active ketoconazole (NIZORAL) 2 % cream Apply 1 Application topically as needed Active propranoloL (INDERAL) 40 mg tabletIndication s:Atrial Arrhythmia Take 1.5 tablets (60 mg total) by mouth 2 (two) times a day 06/06/19 23 Active dicyclomine (BENTYL) 20 mg tabletIndication s:Abdominal Pain with Cramps Take 1 tablet (20 mg total) by mouth every 6 (six) hours 09/11/[address] (CYMBALTA) 30 mg capsuleIndicatio ns:Anxiety with Depression Take 1 capsule (30 mg total) by mouth every morning 09/12/19 23 Active meclizine (ANTIVERT) 25 mg tabletIndication s:Dizziness and giddiness Take 1 tablet (25 mg total) by mouth 3 (three) times a day as needed for dizziness for up to 60 doses 60 tablet 05/31/19 24 Active lidocaine (LIDODERM) 5 %Indications:Pos therpetic Neuralgia Place 1 patch on the skin as needed 01/25/20 24 Active metroNIDAZOLE (METROGEL) 0.75 % (37.5mg/5 gram) vaginal gel INSERT 1 APPLICATORFUL VAGINALLY EVERY DAY AT BEDTIME FOR 5 DAYS 04/28/19 Active oxyCODONE (ROXICODONE) 20 mg tablet Take by mouth every 6 (six) hours as needed 05/13/19 Active fluticasone propion-salmeter oL (ADVAIR DISKUS) 500-50 mcg/dose diskus inhaler INHALE 1 PUFF BY MOUTH EVERY 12 HOURS 07/29/19 Active Linzess 72 mcg capsule Take 1 capsule (72 mcg total) by mouth daily 09/08/19 Active buPROPion XL (WELLBUTRIN XL) 150 mg 24 hr tablet Take 1 tablet (150 mg total) by mouth every morning 09/08/19 Active diazePAM (VALIUM) 5 mg tablet Take 1 tab 45 minutes prior to the procedure, may repeat immediately prior to the procedure if needed. 2 tablet 09/22/19 Active tiZANidine (ZANAFLEX) 4 mg tablet TAKE 1 TABLET BY MOUTH EVERY DAY AT BEDTIME NEEDED FOR MUSCLE SPASMS 11/13/19 Active calcium carbonate (OS-ENRIQUE) 1,500 mg (600 mg elemental) tablet Take 600 mg by mouth 10/26/19 Active predniSONE (DELTASONE) 10 mg tablet 11/14/19 25 Active acetaminophen (TYLENOL) 325 mg tablet Take 2 tablets (650 mg total) by mouth every 6 (six) hours as needed for pain Active CALCIUM ORALIndications: supplement Take 1 tablet by mouth 2 (two) times a day 025 Discontin ued(Patie nt Reported) tiZANidine (ZANAFLEX) 2 mg tablet TAKE 1 TABLET(2 MG) BY MOUTH EVERY NIGHT NEEDED FOR MUSCLE SPASMS 30 tablet 2 07/09/19 25 025 Discontin ued(Reord er) tiZANidine (ZANAFLEX) 2 mg tablet Take 1 tablet (2 mg total) by mouth daily as needed for muscle spasms 30 tablet 2 10/28/19 25 025 Discontin ued(Patie nt Reported) Active Problems Problem Noted Date Diagnosed Date Acute bacterial sinusitis 11/16/2024 Anemia 11/16/2024 Arrhythmia, atrial 11/16/2024 Bilateral sciatica 11/16/2024 Laila vaginitis 11/16/2024 Cellulitis of great toe, left 11/16/2024 Chronic constipation 11/16/2024 Cough 11/16/2024 De Quervain's tenosynovitis, left 11/16/2024 Epigastric pain 11/16/2024 ETD (eustachian tube dysfunction) 11/16/2024 Facial erythema 11/16/2024 Ganglion cyst 11/16/2024 Gastro-esophageal reflux disease without esophag itis 11/16/2024 Glossitis 11/16/2024 Hypothyroidism, unspecified 11/16/2024 Iron deficiency anemia 11/16/2024 Left sided sciatica 11/16/2024 Left wrist pain 11/16/2024 Low back pain, unspecified 11/16/2024 Major depressive disorder, recurrent, mild 11/16 Mild persistent asthma, uncomplicated 11/16/2024 Headache, unspecified 11/16/2024 Occipital neuralgia 11/16/2024 Osteoarthritis of hands, bilateral 11/16/2024 Palpitations 11/16/2024 Poor appetite 11/16/2024 Pure hypercholesterolemia, unspecified Right hip pain 11/16/2024 Sebaceous cyst 11/16/2024 Senile osteoporosis 11/16/2024 Skin ulcer of right knee 11/16/2024 Strain of muscle and tendon of back wall of thorax, initial encounter 11/16/2024 Tendinitis of left shoulder 11/16/2024 Type 2 diabetes mellitus without complications 0 11/16/2024 Lumbar post-laminectomy syndrome 08/03/2024 Lumbar stenosis with neurogenic claudication 01/2025 Asthma 04/27/2024 Spinal stenosis, lumbar libia on, with neurogenic claudication 04/23/2024 Hypertriglyceridemia 04/16/2024 Preop cardiovascular exam 04/10/2024 Irregular heart beats 04/10/2024 Lumbar radiculopathy 03/19/2024 Mass of ear auricle, right 01/06/2024 Hoarseness 09/14/2022 Chronic pansinusitis 09/14/2022 Benign neoplasm of skin of auricle of right ear 11/17/2021 Nuclear sclerotic cataract of right eye 06/24/19 Overview (06/23/2020): Added automatically from request for surgery [id number] Acute recurrent maxillary sinusitis 10/19/2019 Dizziness and giddiness 10/19/2019 Benign paroxysmal positional vertigo 12/25/2012 Encounters Date Type Department Care Team Description 11/16/2024 1:20 PM CDT Office Visit [facility] [address] [facility] [address] [place] [phone] Compa Lujan MD Lumbar radiculopathy 11/16/2024 12:38 PM CDT - 11/16/2024 11:59 PM CDT Hospital Encounter [id number] [address] [address] [place] [phone] Lumbar radiculopathy Discharge Disposition: Discharge to home or self care 11/11/2024 Telephone [facility] [address] [place] [address] [facility] [address] [place] [address] Jovi Adams MD 11/06/2024 Telephone [facility] [address] [place] [address] [facility] [address] [place] [address] Jovi Adams MD [facility] Preprocedure 11/03/2024 1:06 PM CDT - 11/03/2024 11:59 PM CDT Hospital Encounter [address] [address] [place]mbalance Discharge Disposition: Discharge to home or self care 11/03/2024 1:06 PM CDT - 11/03/2024 11:59 PM CDT Hospital Encounter [address] [address] Imbalance Discharge Disposition: Discharge to home or self care 10/30/2024 Orders Only [facility] [address] [place] [address] [facility] [address] [place] [address] Jovi Adams MD Pudendal neuralgia (Primary Dx) 10/28/2024 Telephone [facility] [address] [place] [address] [facility] [address] [place] [address] Jovi Adams MD 10/19/2024 10:28 AM CDT - 10/19/2024 11:59 PM CDT Hospital Encounter [facility] [address] [place] [address] Jovi Adams MD Lumbar radiculopathy (Primary Dx); Lumbar disc herniation with radiculopathy; Lumbar post-laminectomy syndrome; Lumbar stenosis with neurogenic claudication Discharge Disposition: Discharge to home or self care 09/30/2024 Orders Only [facility] [address] 6[address] [place] [address] [place] [address] Compa Lujan MD Imbalance 09/24/2024 Telephone [facility] [address] [facility] [address] [place] [phone] Compa Lujan MD nerve block 09/14/2024 10:20 AM CDT Office Visit [facility] [address] [facility] [address] [place] [phone] Compa Lujan MD Imbalance (Primary Dx); Pudendal neuralgia; Lumbar herniated disc; Lumbar radiculopathy 08/25/2024 Telephone [facility] [address] [facility] [address] [place] [phone] Compa Lujan MD Injections from Last 3 Months Surgical History Surgery Date Site/Laterality Comments ELBOW SURGERY 1989, 1990 Bilateral tendon repair CHOLECYSTECTOMY 02/26/2000 - 02/24/2001 BREAST LUMPECTOMY 02/26/1996 - 02/24/1997 Right FOOT SURGERY 02/25/1999 - 02/25/2000 Bilateral COLONOSCOPY ? couple ESOPHAGOGASTRODUODENOSCOPY ? WISDOM TOOTH EXTRACTION 1980s HYSTERECTOMY 09/1994 CATARACT EXTRACTION 2022 Medical History Medical History Date Comments Allergic rhinitis Sinusitis Atrial fibrillation (HCC) Hyperlipidemia Hypertension Thyroid disease GERD (gastroesophageal reflux disease) 1970 Arthritis 1976 Depression 1965 Asthma 2003 Cataracts, bilateral Tinnitus Dizziness Esophageal spasm Vertigo Osteoporosis 2005 Anemia 05/2022 Chronic bronchitis (HCC) Diabetes mellitus 2005 Brain concussion 2006 Family History Medical History Relation Name Comments Heart disease Father Anesthesia problems Mother face go t real red cause unknown COPD Other 1 Diabetes Other 1 Heart disease Other 1 Hypertension Other 1 Hypertension - (Added by TW Conv) Osteoarthritis Other 1 Asthma Other 2 Asthma - (Added by TW Conv) Diabetes Other 3 Diabetes Mellit us - (Added by TW Conv) Malig Hyperthermia Neg Hx Pseudochol deficiency Neg Hx Relation Name Status Comments Father Mother Other 1 Other 2 Other 3 Social History Tobacco Use Types Packs/Day Years Used Date Smoking Tobacco: Former Cigarettes 1 - 1961 Passive Smoke Exposure: Past Smokeless Tobacco: Never Tobacco Cessation:Counseling Given: Not Answered Comments:couple cigarettes here and there Alcohol Use Standard Drinks/Week Comments [...] on file 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 Gender Identity Female 11/02/2021 9:35 AM CDT Sexual Orientation Not on file Obstetrics History Last Filed Vital Signs Vital Sign Reading Time Taken Comments Blood Pressure 125/66 10/19/2024 10:38 AM CDT Pulse 66 10/19/2024 10:38 AM CDT Temperature 36.5 C (97.7 F) 10/19/2024 10:38 AM CDT Respiratory Rate 16 10/19/2024 10:38 AM CDT Oxygen Saturation 95% 10/19/2024 10:38 AM CDT Inhaled Oxygen Concentration - - Weight 52.4 kg (115 lb 8 oz) 10/19/2024 10:38 AM CDT Height 142.2 cm (4' 8) 08/20/2024 8:38 AM CDT Body Mass Index 25.89 08/20/2024 8:38 AM CDT Plan of Treatment Health Maintenance Due Date Last Done Comments Albumin Creatinine Ratio, Urine 1943 Depression Screening 1943 Osteoporosis Screening-Bone Density Scan 1943 Dilated Eye Exam 1943 Foot Exam 1943 Hepatitis B Screening 1961 Zoster Vaccine (1 of 2) 1993 Well Visit 65+ 2008 Pneumococcal vaccine 65+ (2 of 2 - PPSV23, PCV20, or PCV21) 04/21/2015 02/24/2015 Covid-19 Vaccine (2024-2 6 season) 2024 06/16/2021, 12/19/2020, 05/03/2020, Additional history exists Influenza Vaccine (#1) 2024 , 11/25/2018, 12/01/2017, Additional history exists Hemoglobin A1C 10/29/2024 04/28/2024 Lipid Panel 04/10/2025 04/10/2024 Fall Risk Assessment 05/08/2025 05/08/2024 eGFR 05/08/2025 05/08/2024, 04/25, 04/28/2024, Additional history exists DTaP/Tdap/Td Vaccine (2 - Td or Tdap) 09/09/2025 09/10/2015, 09/09/2015 Goals Goal Patient Goal Type Associated Problems Recent Progress Patient-Stated? Author CCM Chronic Pain Care Plan Chronic Care Management No change(10/19 10:38 AM CDT) No Margareth Baum, RN Note: Problem: Chronic Pain Goals: 1. Minimize further functional decline 2. Maximize quality of life 3. 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 15.5 Diopter - [id number] - [id number] Implanted:Qty: 1 on 07/05/2020 by Swapna Lee MD at [facility] Right: Endy Reyes [employer] 01/31/2023 [id number] / [id number] / Procedures Procedure Name Priority Date/Time Associated Diagnosis Comments XR SPINE LUMBAR COMPLETE 4 OR MORE VIEWS Schedule Routine, Read Routine (OP Routine) 11/16/2024 12:57 PM CDT Lumbar radiculopathy MRI THORACIC SPINE WO CONTRAST Schedule Routine, Read Routine (OP Routine) 11/03/2024 2:29 PM CDT Imbalance MRI CERVICAL SPINE WO CONTRAST Schedule Routine, Read Routine (OP Routine) 11/03/2024 2:28 PM CDT Imbalance EGFR Routine 05/08/2024 10:50 AM CDT POCT HEMOGLOBIN A1C Routine 04/28/2024 3:28 PM 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 Mild biconvex scoliosis of the thoracic lumbar spine with severe multilevel thoracolumbar degenerative disc disease Electronically signed by: Abida Carreon MD Narrative 11/16/2024 1:09 PM CDT EXAMINATION: XR SPINE LUMBAR 4 OR MORE VIEWS HISTORY: Back pain. FINDINGS: Comparison to 08/10/2024. 3 levoscoliosis of the thoracic lumbar spine centered at T11 with dextro scoliosis of the lumbar spine centered at L3. Vertebral body heights are preserved severe multilevel degenerative disease most prominent at the thoracolumbar curve apex. Grade 1 anterolisthesis of L5 and S1 in neutral position, unchanged with bending Sagittal alignment is otherwise normal. And L5-S1 moderate to severe facet osteoarthritis. Procedure Note Abida Carreon MD - 11/16/2024 EXAMINATION: XR SPINE LUMBAR 4 OR MORE VIEWS HISTORY: Back pain. FINDINGS: Comparison to 08/10/2024. 3 levoscoliosis of the thoracic lumbar spine centered at T11 with dextro scoliosis of the lumbar spine centered at L3. Vertebral body heights are preserved severe multilevel degenerative disease most prominent at the thoracolumbar curve apex. Grade 1 anterolisthesis of L5 and S1 in neutral position, unchanged with bending Sagittal alignment is otherwise normal. And L5-S1 moderate to severe facet osteoarthritis. IMPRESSION: 1. Mild biconvex scoliosis of the thoracic lumbar spine with severe multilevel thoracolumbar degenerative disc disease Electronically signed by: Abida Carreon MD Compa Lujan MD IMG XR PROCEDURES Final Re sult * MRI Thoracic Spine WO Contrast (11/03/2024 2:29 PM CDT) Anatomical Region Laterality Modality Spine N/A Magnetic Resonan ce 11/03/2024 3:00 PM CDT Narrative 11/03/2024 4:12 PM CDT EXAM DESCRIPTION: MRI THORACIC SPINE WO CONTRAST; MRI CERVICAL SPINE WO CONTRAST REASON FOR STUDY: Ataxia, nontraumatic, thoracic pathology suspected ; Ataxia, nontraumatic, cervical pathology suspected, Spinal stenosis, cervical Chronic back pain TECHNIQUE: Sagittal and Axial imaging includes T1, T2, STIR and gradient echo sequences. COMPARISON: None available FINDINGS: Cervical Spine: CERVICAL ALIGNMENT: Overall straightening of the normal cervical lordosis. There is upper cervical dextrocurvature and lower cervical levocurvature . There is C3 on C4 and C4 on C5 and C7 on T1 anterolisthesis. There is C5 on C6 and C6 on C7 retrolisthesis. CERVICAL VERTEBRAE: Mild multilevel type 1 Modic endplate change. No suspicious disc signal or paravertebral soft tissue swelling. There is a left C3-C4 facet marrow edema CERVICAL DISCS: Multilevel degenerative disc disease, most pronounced and moderate at C5-C6 and C6-C7 CERVICAL HARDWARE: None in the spine. CERVICAL CORD: Evaluation degraded by motion artifact, particularly on the axial sequences. No gross cord signal abnormality is seen. BASE OF BRAIN: Small focus of T2 hyperintensity in the right cerebellar hemisphere, likely chronic lacunar infarct. Partially visualized left mastoid effusion. C1-C2: No significant spinal stenosis. C2-C3: Mild disc bulge. Moderate left and mild right facet arthropathy. Normal uncovertebral joints. No significant neural foraminal stenosis. No spinal canal stenosis C3-C4: Disc bulge. Moderate to severe bilateral facet arthropathy. Mild uncovertebral arthropathy. Mild right neural foraminal stenosis. No spinal canal stenosis C4-C5: Posterior disc osteophyte complex. Mild facet and uncovertebral arthropathy. Moderate right neural foraminal stenosis. No substantial spinal canal stenosis C5-C6: Posterior disc osteophyte complex. Mild left and moderate right facet arthropathy. Moderate bilateral uncovertebral arthropathy. Moderate to severe right and mvcj-hx-kiqeccor left neural foraminal stenosis. Mxha-nt-rsmkxhif spinal canal stenosis. Ligamentum flavum thickening is present C6-C7: Disc bulge. Mild facet and moderate uncovertebral arthropathy. Moderate left and moderate to severe right neural foraminal stenosis. Mild spinal canal stenosis C7-T1: No significant disc bulge. Mild left and moderate right facet arthropathy. Mild uncovertebral arthropathy. Mild neural foraminal stenosis. No spinal canal stenosis CERVICAL OTHER: No other significant finding. Thoracic Spine: THORACIC ALIGNMENT: There is mild dextrocurvature of the upper thoracic spine and moderate levocurvature of the lower thoracic spine. Mild T4 on T5 anterolisthesis THORACIC VERTEBRAE: Scattered type 1 Modic endplate changes without suspicious disc signal or associated prevertebral soft tissue thickening . Multiple small Schmorl's nodes without edema, compatible with chronicity. No MR evidence for recent fracture or ligamentous injury. CT could be performed as clinically warranted.. THORACIC DISCS: Diffuse degenerative disc disease, up to severe at T8-T9 and T9-T10 and moderate elsewhere THORACIC HARDWARE: None in the spine. THORACIC CORD: Evaluation of cord signal is degraded by motion artifact, particularly on the axial sequences. No gross cord signal abnormality is seen within this limitation. THORACIC DISCS T1-T12: There are disc bulges, ligamentum flavum thickening and mild facet osteoarthritis throughout the thoracic spine . There is mild spinal canal stenosis at T5-T6, mild spinal canal stenosis at T7-T8, mild left eccentric spinal canal stenosis at T8-T9 (due to prominent disc protrusion), mild spinal canal stenosis at T9-T10, mild spinal canal stenosis at T10-11 and mild right eccentric spinal canal stenosis at T11-12 and T12-L1. There is multilevel left neural foraminal stenosis, most pronounced and moderate at T7-T8 and T9-T10. There is multilevel right neural foraminal stenosis, most pronounced and moderate at T8-T9 and T10-11 THORACIC OTHER: No other significant finding. SOFT TISSUES: There T2 heterogeneously hyperintense structure in the mediastinum is suspected to be a moderate to large hiatal hernia (image [phone] of [phone]) but incompletely characterized. T2 hyperintense foci in the right kidney are incompletely characterize but compatible with cysts. An ultrasound can be performed for further evaluation. OTHER: No other significant finding. There is multilevel degenerative disc and joint disease in the lumbar spine that is incompletely assessed on the localizer sequence with grade 1 L5 on S1 anterolisthesis. No gross change from 07/17/2024, though not well assessed IMPRESSION: 1. Multilevel cervical degenerative disc and joint disease, as detailed level by level above. There is krqz-hp-rvgyueuq spinal canal stenosis at C5-C6 and mild spinal canal stenosis at C6-C7. Multilevel neural foraminal stenosis, most pronounced and moderate to severe on the right at C5-C6 and C6-C7. 2. 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 3. T2 heterogeneously hyperintense structure in the mediastinum is suspected to be a moderate to large hiatal hernia. This can be further evaluated with chest CT. THIS IS AN ELECTRONICALLY VERIFIED FINAL REPORT 11/03/2024 4:12 PM - Electronically signed by Jose WILLARD T: Report ID: [id number] Reading Location: [id number] Procedure Note Jose Mathews MD - 11/03/2024 EXAM DESCRIPTION: MRI THORACIC SPINE WO CONTRAST; MRI CERVICAL SPINE WO CONTRAST REASON FOR STUDY: Ataxia, nontraumatic, thoracic pathology suspected ; Ataxia, nontraumatic, cervical pathology suspected, Spinal stenosis, cervical Chronic back pain TECHNIQUE: Sagittal and Axial imaging includes T1, T2, STIR and gradientecho sequences. COMPARISON: None available FINDINGS: Cervical Spine: CERVICAL ALIGNMENT: Overall straightening of the normal cervicallordosis. There is upper cervical dextrocurvature and lower cervical levocurvature . There is C3 on C4 and C4 on C5 and C7 on T1 anterolisthesis. There is C5on C6 and C6 on C7 retrolisthesis. CERVICAL VERTEBRAE: Mild multilevel type 1 Modic endplate change. No suspicious disc signal or paravertebral soft tissue swelling. There is aleft C3-C4 facet marrow edema CERVICAL DISCS: Multilevel degenerative disc disease, most pronouncedand moderate at C5-C6 and C6-C7 CERVICAL HARDWARE: None in the spine. CERVICAL CORD: Evaluation degraded by motion artifact, particularly onthe axial sequences. No gross cord signal abnormality is seen. BASE OF BRAIN: Small focus of T2 hyperintensity in the right cerebellar hemisphere, likely chronic lacunar infarct. Partially visualized leftmastoid effusion. C1-C2: No significant spinal stenosis. C2-C3: Mild disc bulge. Moderate left and mild right facet arthropathy. Normal uncovertebral joints. No significant neural foraminal stenosis.No spinal canal stenosis C3-C4: Disc bulge. Moderate to severe bilateral facet arthropathy.Mild uncovertebral arthropathy. Mild right neural foraminal stenosis. Nospinal canal stenosis C4-C5: Posterior disc osteophyte complex. Mild facet and uncovertebral arthropathy. Moderate right neural foraminal stenosis. No substantialspinal canal stenosis C5-C6: Posterior disc osteophyte complex. Mild left and moderate right facet arthropathy. Moderate bilateral uncovertebral arthropathy.Moderate to severe right and wwmz-ov-dxxwwggy left neural foraminal stenosis. Vzfw-rm-oxbhitwj spinal canal stenosis. Ligamentum flavum thickening is present C6-C7: Disc bulge. Mild facet and moderate uncovertebral arthropathy. Moderate left and moderate to severe right neural foraminal stenosis.Mild spinal canal stenosis C7-T1: No significant disc bulge. Mild left and moderate right facet arthropathy. Mild uncovertebral arthropathy. Mild neural foraminalstenosis. No spinal canal stenosis CERVICAL OTHER: No other significant finding. Thoracic Spine: THORACIC ALIGNMENT: There is mild dextrocurvature of the upper thoracic spine and moderate levocurvature of the lower thoracic spine. Mild T4 onT5 anterolisthesis THORACIC VERTEBRAE: Scattered type 1 Modic endplate changes without suspicious disc signal or associated prevertebral soft tissue thickening . Multiple small Schmorl's nodes without edema, compatible with chronicity.No MR evidence for recent fracture or ligamentous injury. CT could beperformed as clinically warranted.. THORACIC DISCS: Diffuse degenerative disc disease, up to severe at T8-T9and T9-T10 and moderate elsewhere THORACIC HARDWARE: None in the spine. THORACIC CORD: Evaluation of cord signal is degraded by motion artifact, particularly on the axial sequences. No gross cord signal abnormality isseen within this limitation. THORACIC DISCS T1-T12: There are disc bulges, ligamentum flavumthickening and mild facet osteoarthritis throughout the thoracic spine . There ismild spinal canal stenosis at T5-T6, mild spinal canal stenosis at T7-T8, mildleft eccentric spinal canal stenosis at T8-T9 (due to prominent discprotrusion), mild spinal canal stenosis at T9-T10, mild spinal canal stenosis at [id number] mild right eccentric spinal canal stenosis at T11-12 and T12-L1. There is multilevel left neural foraminal stenosis, most pronounced and moderate at T7-T8 and T9-T10. There is multilevel right neural foraminal stenosis,most pronounced and moderate at T8-T9 and T10-11 THORACIC OTHER: No other significant finding. SOFT TISSUES: There T2 heterogeneously hyperintense structure in the mediastinum is suspected to be a moderate to large hiatal hernia (image 33of 24,001) but incompletely characterized. T2 hyperintense foci in the right kidney are incompletely characterize but compatible with cysts. Anultrasound can be performed for further evaluation. OTHER: No other significant finding. There is multilevel degenerative disc and joint disease in the lumbarspine that is incompletely assessed on the localizer sequence with grade 1 L5 onS1 anterolisthesis. No gross change from 07/17/2024, though not wellassessed IMPRESSION: 1. Multilevel cervical degenerative disc and joint disease, as detailed level by level above. There is zuyn-lm-numzluso spinal canal stenosis atC5-C6 and mild spinal canal stenosis at C6-C7. Multilevel neural foraminalstenosis, most pronounced and moderate to severe on the right at C5-C6 and C6-C7. 2. 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 3. T2 heterogeneously hyperintense structure in the mediastinum issuspected to be a moderate to large hiatal hernia. This can be further evaluatedwith chest CT. THIS IS AN ELECTRONICALLY VERIFIED FINAL REPORT 11/03/2024 4:12 PM - Electronically signed by Jose WILLARD T: Report ID: [id number] Reading Location: [id number] us Compa Lujan MD IMG MRI PROCEDURES Final R esult * MRI Cervical Spine WO Contrast (11/03/2024 2:28 PM CDT) Anatomical Region Laterality Modality Spine N/A Magnetic Resonan ce 11/03/2024 3:00 PM CDT Narrative 11/03/2024 4:12 PM CDT EXAM DESCRIPTION: MRI THORACIC SPINE WO CONTRAST; MRI CERVICAL SPINE WO CONTRAST REASON FOR STUDY: Ataxia, nontraumatic, thoracic pathology suspected ; Ataxia, nontraumatic, cervical pathology suspected, Spinal stenosis, cervical Chronic back pain TECHNIQUE: Sagittal and Axial imaging includes T1, T2, STIR and gradient echo sequences. COMPARISON: None available FINDINGS: Cervical Spine: CERVICAL ALIGNMENT: Overall straightening of the normal cervical lordosis. There is upper cervical dextrocurvature and lower cervical levocurvature . There is C3 on C4 and C4 on C5 and C7 on T1 anterolisthesis. There is C5 on C6 and C6 on C7 retrolisthesis. CERVICAL VERTEBRAE: Mild multilevel type 1 Modic endplate change. No suspicious disc signal or paravertebral soft tissue swelling. There is a left C3-C4 facet marrow edema CERVICAL DISCS: Multilevel degenerative disc disease, most pronounced and moderate at C5-C6 and C6-C7 CERVICAL HARDWARE: None in the spine. CERVICAL CORD: Evaluation degraded by motion artifact, particularly on the axial sequences. No gross cord signal abnormality is seen. BASE OF BRAIN: Small focus of T2 hyperintensity in the right cerebellar hemisphere, likely chronic lacunar infarct. Partially visualized left mastoid effusion. C1-C2: No significant spinal stenosis. C2-C3: Mild disc bulge. Moderate left and mild right facet arthropathy. Normal uncovertebral joints. No significant neural foraminal stenosis. No spinal canal stenosis C3-C4: Disc bulge. Moderate to severe bilateral facet arthropathy. Mild uncovertebral arthropathy. Mild right neural foraminal stenosis. No spinal canal stenosis C4-C5: Posterior disc osteophyte complex. Mild facet and uncovertebral arthropathy. Moderate right neural foraminal stenosis. No substantial spinal canal stenosis C5-C6: Posterior disc osteophyte complex. Mild left and moderate right facet arthropathy. Moderate bilateral uncovertebral arthropathy. Moderate to severe right and ksuc-fi-hohbfefx left neural foraminal stenosis. Mprm-yo-jzkuelby spinal canal stenosis. Ligamentum flavum thickening is present C6-C7: Disc bulge. Mild facet and moderate uncovertebral arthropathy. Moderate left and moderate to severe right neural foraminal stenosis. Mild spinal canal stenosis C7-T1: No significant disc bulge. Mild left and moderate right facet arthropathy. Mild uncovertebral arthropathy. Mild neural foraminal stenosis. No spinal canal stenosis CERVICAL OTHER: No other significant finding. Thoracic Spine: THORACIC ALIGNMENT: There is mild dextrocurvature of the upper thoracic spine and moderate levocurvature of the lower thoracic spine. Mild T4 on T5 anterolisthesis THORACIC VERTEBRAE: Scattered type 1 Modic endplate changes without suspicious disc signal or associated prevertebral soft tissue thickening . Multiple small Schmorl's nodes without edema, compatible with chronicity. No MR evidence for recent fracture or ligamentous injury. CT could be performed as clinically warranted.. THORACIC DISCS: Diffuse degenerative disc disease, up to severe at T8-T9 and T9-T10 and moderate elsewhere THORACIC HARDWARE: None in the spine. THORACIC CORD: Evaluation of cord signal is degraded by motion artifact, particularly on the axial sequences. No gross cord signal abnormality is seen within this limitation. THORACIC DISCS T1-T12: There are disc bulges, ligamentum flavum thickening and mild facet osteoarthritis throughout the thoracic spine . There is mild spinal canal stenosis at T5-T6, mild spinal canal stenosis at T7-T8, mild left eccentric spinal canal stenosis at T8-T9 (due to prominent disc protrusion), mild spinal canal stenosis at T9-T10, mild spinal canal stenosis at T10-11 and mild right eccentric spinal canal stenosis at T11-12 and T12-L1. There is multilevel left neural foraminal stenosis, most pronounced and moderate at T7-T8 and T9-T10. There is multilevel right neural foraminal stenosis, most pronounced and moderate at T8-T9 and T10-11 THORACIC OTHER: No other significant finding. SOFT TISSUES: There T2 heterogeneously hyperintense structure in the mediastinum is suspected to be a moderate to large hiatal hernia (image 33 of 24,001) but incompletely characterized. T2 hyperintense foci in the right kidney are incompletely characterize but compatible with cysts. An ultrasound can be performed for further evaluation. OTHER: No other significant finding. There is multilevel degenerative disc and joint disease in the lumbar spine that is incompletely assessed on the localizer sequence with grade 1 L5 on S1 anterolisthesis. No gross change from 07/17/2024, though not well assessed IMPRESSION: 1. Multilevel cervical degenerative disc and joint disease, as detailed level by level above. There is gond-lt-zkggwywg spinal canal stenosis at C5-C6 and mild spinal canal stenosis at C6-C7. Multilevel neural foraminal stenosis, most pronounced and moderate to severe on the right at C5-C6 and C6-C7. 2. 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 3. T2 heterogeneously hyperintense structure in the mediastinum is suspected to be a moderate to large hiatal hernia. This can be further evaluated with chest CT. THIS IS AN ELECTRONICALLY VERIFIED FINAL REPORT 11/03/2024 4:12 PM - Electronically signed by Jose Mathews M.D. MZ T: Report ID: [id number] Reading Location: [place] [id number] Procedure Note Jose Mathews MD - 11/03/2024 EXAM DESCRIPTION: MRI THORACIC SPINE WO CONTRAST; MRI CERVICAL SPINE WO CONTRAST REASON FOR STUDY: Ataxia, nontraumatic, thoracic pathology suspected ; Ataxia, nontraumatic, cervical pathology suspected, Spinal stenosis, cervical Chronic back pain TECHNIQUE: Sagittal and Axial imaging includes T1, T2, STIR and gradientecho sequences. COMPARISON: None available FINDINGS: Cervical Spine: CERVICAL ALIGNMENT: Overall straightening of the normal cervicallordosis. There is upper cervical dextrocurvature and lower cervical levocurvature . There is C3 on C4 and C4 on C5 and C7 on T1 anterolisthesis. There is C5on C6 and C6 on C7 retrolisthesis. CERVICAL VERTEBRAE: Mild multilevel type 1 Modic endplate change. No suspicious disc signal or paravertebral soft tissue swelling. There is aleft C3-C4 facet marrow edema CERVICAL DISCS: Multilevel degenerative disc disease, most pronouncedand moderate at C5-C6 and C6-C7 CERVICAL HARDWARE: None in the spine. CERVICAL CORD: Evaluation degraded by motion artifact, particularly onthe axial sequences. No gross cord signal abnormality is seen. BASE OF BRAIN: Small focus of T2 hyperintensity in the right cerebellar hemisphere, likely chronic lacunar infarct. Partially visualized leftmastoid effusion. C1-C2: No significant spinal stenosis. C2-C3: Mild disc bulge. Moderate left and mild right facet arthropathy. Normal uncovertebral joints. No significant neural foraminal stenosis.No spinal canal stenosis C3-C4: Disc bulge. Moderate to severe bilateral facet arthropathy.Mild uncovertebral arthropathy. Mild right neural foraminal stenosis. Nospinal canal stenosis C4-C5: Posterior disc osteophyte complex. Mild facet and uncovertebral arthropathy. Moderate right neural foraminal stenosis. No substantialspinal canal stenosis C5-C6: Posterior disc osteophyte complex. Mild left and moderate right facet arthropathy. Moderate bilateral uncovertebral arthropathy.Moderate to severe right and ewyp-dh-gbkpzcae left neural foraminal stenosis. Wmqp-kj-vwycpxph spinal canal stenosis. Ligamentum flavum thickening is present C6-C7: Disc bulge. Mild facet and moderate uncovertebral arthropathy. Moderate left and moderate to severe right neural foraminal stenosis.Mild spinal canal stenosis C7-T1: No significant disc bulge. Mild left and moderate right facet arthropathy. Mild uncovertebral arthropathy. Mild neural foraminalstenosis. No spinal canal stenosis CERVICAL OTHER: No other significant finding. Thoracic Spine: THORACIC ALIGNMENT: There is mild dextrocurvature of the upper thoracic spine and moderate levocurvature of the lower thoracic spine. Mild T4 onT5 anterolisthesis THORACIC VERTEBRAE: Scattered type 1 Modic endplate changes without suspicious disc signal or associated prevertebral soft tissue thickening . Multiple small Schmorl's nodes without edema, compatible with chronicity.No MR evidence for recent fracture or ligamentous injury. CT could beperformed as clinically warranted.. THORACIC DISCS: Diffuse degenerative disc disease, up to severe at T8-T9and T9-T10 and moderate elsewhere THORACIC HARDWARE: None in the spine. THORACIC CORD: Evaluation of cord signal is degraded by motion artifact, particularly on the axial sequences. No gross cord signal abnormality isseen within this limitation. THORACIC DISCS T1-T12: There are disc bulges, ligamentum flavumthickening and mild facet osteoarthritis throughout the thoracic spine . There ismild spinal canal stenosis at T5-T6, mild spinal canal stenosis at T7-T8, mildleft eccentric spinal canal stenosis at T8-T9 (due to prominent discprotrusion), mild spinal canal stenosis at T9-T10, mild spinal canal stenosis at [id number] mild right eccentric spinal canal stenosis at T11-12 and T12-L1. There is multilevel left neural foraminal stenosis, most pronounced and moderate at T7-T8 and T9-T10. There is multilevel right neural foraminal stenosis,most pronounced and moderate at T8-T9 and T10-11 THORACIC OTHER: No other significant finding. SOFT TISSUES: There T2 heterogeneously hyperintense structure in the mediastinum is suspected to be a moderate to large hiatal hernia (image 33of 24,001) but incompletely characterized. T2 hyperintense foci in the right kidney are incompletely characterize but compatible with cysts. Anultrasound can be performed for further evaluation. OTHER: No other significant finding. There is multilevel degenerative disc and joint disease in the lumbarspine that is incompletely assessed on the localizer sequence with grade 1 L5 onS1 anterolisthesis. No gross change from 07/17/2024, though not wellassessed IMPRESSION: 1. Multilevel cervical degenerative disc and joint disease, as detailed level by level above. There is cujj-ii-jdxhuqer spinal canal stenosis atC5-C6 and mild spinal canal stenosis at C6-C7. Multilevel neural foraminalstenosis, most pronounced and moderate to severe on the right at C5-C6 and C6-C7. 2. 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 3. T2 heterogeneously hyperintense structure in the mediastinum issuspected to be a moderate to large hiatal hernia. This can be further evaluatedwith chest CT. THIS IS AN ELECTRONICALLY VERIFIED FINAL REPORT 11/03/2024 4:12 PM - Electronically signed by Jose WILLARD T: Report ID: [id number] Reading Location: [place] [address] Compa Lujan MD IMG MRI PROCEDURES Final R esult * eGFR (05/08/2024 10:50 AM CDT) eGFR >90 >=60 mL/min/1. 73 m2 Comment: Interpretive Data Reference Interval Normal >/= 90 mL/min/1.73m2 Mildly decreased* 60 - 89 mL/min/1.73m2 Mildly to moderately decreased 45 - 59 mL/min/1.73m2 Moderately to severely decreased 30 - 44 mL/min/1.73m2 Severely decreased 15 - 29 mL/min/1.73m2 Kidney Failure < 15 mL/min/1.73m2 *Relative to young adult level Estimated glomerular filtration rate is determined by the 2020 CKD-EPI equation recommended by the National Kidney Foundation (A Unifying Approach to GFR Estimation: Recommendations of the NKF-ASK Task Force on Reassessing the Inclusion of Race in Diagnosing Kidney Disease, JASN 2020). The CKD-EPI equation should not be used for patients with unstable renal function and has not been validated in children and those over 70. Current interpretive data was last reviewed 2020. Blood 05/08/2024 10:5 0 AM CDT 05/08/2024 12:04 PM CDT Compa Lujan MD LAB BLOOD ORDERABLES Final Result [facility] [address] Department [place] [address] * (ABNORMAL) POCT hemoglobin A1c (04/28/2024 3:28 PM WIND TURBINE TECHNICIAN) Hgb A1C, POC 6.2(H) 4.0 - 5.6 % Est Average Gluc POC 131 mg/dL [facility] Comment: The ADA recommends reporting an estimated Average Glucose (eAG) with all Hemoglobin A1c results using the equation derived from a study of 507 normal and diabetic adults. Minority populations were underrepresented and children were not included. (Diabetes Care 31:0627-0155, 2008). The eAG is not equivalent to a fasting glucose. Blood 04/28/2024 3:28 PM WIND TURBINE TECHNICIAN 04/28/2024 3:28 PM WIND TURBINE TECHNICIAN us Compa Lujan MD POINT OF CARE TEST ORDERAB LES Final Result [facility] Department [place] [address] * POCT lipid panel (04/10/2024 9:22 AM WIND TURBINE TECHNICIAN) Cholesterol, POC 169 mg/dL HDL, POC 68 mg/dL Triglycerides, POC 375 mg/dL LDL Cholesterol POC 26 mg/dL Chol/HDL Ratio, POC 2.5 Non-HDL Cholesterol, POC 101 mg/dL Cholesterol Total, POC 169 mg/dL Capillary blood 04/10/2024 9 :22 AM WIND TURBINE TECHNICIAN us Moris Shea MD POINT OF CARE TEST O RDERABLES Final Result from Last 3 Months or Most Recently Relevant to Health Maintenance Insurance MEDICARE [facility] MEDICARE SUPPLEMENT MEDICARE [facility] MEDICARE BLUE CROSS MEDICARE SUPPLEMENT Advance Directives For more information, please contact: [phone] Documents on File Type Date 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
--- OUTSIDE RECORDS SUMMARY | 2024-11-24 07:18 | XMS_ITS | Clinical Summary ---
Author Organization [facility] [id number] [place] [address] [address] [address] [place] [address] Care Team Providers Care Button Maker And Installer Name Role Phone Alfonzo Gauthier MD Primary Care Provider [phone]- [phone] Social History Tobacco Use Types Packs/Day Years Used Date Smoking Tobacco: Never Assessed Comments Unknown Sex and Gender Information Value Date Recorded Sex Assigned at Not on file Legal Sex Female 3:38 PM CDT Gender Identity Not on file Sexual Orientation Not on file Plan of Treatment Health Maintenance Due Date Last Done Comments DTAP/TDAP/TD VACCINES (1 - Tdap) 1962 PNEUMOCOCCAL VACCINE 50+ YEARS (1 of 1 - PCV) 03/29/18 94 ZOSTER VACCINE (1 of 2) 1993 OSTEOPOROSIS SCREENING 2008 RSV VACCINE (60+ or ) (1 - 1-dose 75+ series) 2018 INFLUENZA VACCINE (#1) 2024 Insurance MEDICARE PART A AND B [facility] Care Teams Button Maker And Installer Relationship Specialty Start Date End Date Alfonzo Gauthier MD PCP - General Family Practice 10/16/18
--- OUTSIDE RECORDS SUMMARY | 2024-11-24 07:18 | XMS_ITS | Encounter Summary ---
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 Pt was scheduled for an injection tomorrow and had to cancel since she will not be able to lay on the procedure table with her head turned. Pt states she is going to see Dr. Lujan to discuss. Informed pt that she can call us when she is ready to schedule her procedure and call if she needs anything before then. Pt verbalized understanding. documented in this encounter Plan of Treatment [...] on filedocumented in this encounter Care Teams Light Bulb Assembler Relationship Specialty Start Date End Date Alfonzo Gauthier MD PCP - General Family Medicine 10/12/19 documented as of this encounter
== END 2024-11-24 07:12 | disposition home or self-care (01) ==
PROVIDERS: PCP Family Medicine Adolescent Medicine; Visit Provider Family Medicine Adolescent Medicine
DX: R00.2 Palpitations (principal); I87.8 Other specified disorders of veins
CPT/HCPCS: 71046